=== PATIENT | female | born 1940 | race Caucasian/White ===

== ENCOUNTER → 2018-04-25 11:40 | Outpatient (CLI) | payer MEDICARE, OTHER, SELFPAY ==
--- NOTE | 2018-04-25 | DI.MG.S_ITS ---
BILATERAL DIGITAL SCREENING MAMMOGRAM 3D/2D WITH CAD: 04/25/2018 CLINICAL: Routine screening. Comparison is made to exams dated: 03/29/2017 mammogram, 09/16/2015 mammogram, and 07/24/2014 mammogram - [facility]. There are scattered fibroglandular elements in both breasts. Current study was also evaluated with a Computer Aided Detection (CAD) system. No significant masses, calcifications, or other findings are seen in either breast. There has been no significant interval change. IMPRESSION: NEGATIVE There is no mammographic evidence of malignancy. A 1 year screening mammogram is recommended. This exam was interpreted at Station ID: [id number]. NOTE: For mammograms, a report in lay terms will be sent to the patient. Approximately 15% of breast malignancies will not be visualized mammographically. In the management of a palpable breast mass, a negative mammogram must not discourage biopsy of a clinically suspicious lesion. Electronically Signed By: Julius Zazueta M.D. [facility]/[place]:04/25/2018 23:37:46 copy to: VALERIA ANTHONY letter sent: Normal Exam ACR BI-RADS Category 1: Negative 3341F
== END ==
PROVIDERS: Family Provider Family Medicine; PCP Family Medicine; Visit Provider Family Medicine
DX: Z12.31 Encounter for screening mammogram for malignant neoplasm of breast (principal)
CPT/HCPCS: 77063; 77067

== ENCOUNTER → 2020-03-13 13:01 | Outpatient (CLI) | payer MEDICARE, OTHER, SELFPAY ==
--- NOTE | 2020-03-13 | DI.MG.S_ITS ---
BILATERAL DIGITAL SCREENING MAMMOGRAM 3D/2D WITH CAD: 03/13/2020 CLINICAL: Routine screening. Comparison is made to exams dated: 04/25/2018 mammogram, 03/29/2017 mammogram, and 09/16/2015 mammogram - [facility]. There are scattered fibroglandular elements in both breasts. Current study was also evaluated with a Computer Aided Detection (CAD) system. No significant masses, calcifications, or other findings are seen in either breast. There has been no significant interval change. IMPRESSION: NEGATIVE There is no mammographic evidence of malignancy. A 1 year screening mammogram is recommended. This exam was interpreted at Station ID: [id number]. NOTE: For mammograms, a report in lay terms will be sent to the patient. Approximately 15% of breast malignancies will not be visualized mammographically. In the management of a palpable breast mass, a negative mammogram must not discourage biopsy of a clinically suspicious lesion. Electronically Signed By: Roney benson/tawny:03/13/2020 17:19:17 copy to: VALERIA ANTHONY letter sent: Normal Exam ACR BI-RADS Category 1: Negative 3341F
== END ==
PROVIDERS: Family Provider Family Medicine; PCP Family Medicine; Referring Provider Family Medicine; Visit Provider Family Medicine
DX: Z12.31 Encounter for screening mammogram for malignant neoplasm of breast (principal)
CPT/HCPCS: 77063; 77067

== ENCOUNTER → 2021-07-23 10:54 | Outpatient (CLI) | payer MEDICARE, OTHER, SELFPAY ==
--- NOTE | 2021-07-23 | DI.MG.S_ITS ---
BILATERAL DIGITAL SCREENING MAMMOGRAM 3D/2D WITH CAD: 07/23/2021 CLINICAL: Routine screening. Comparison is made to exams dated: 03/13/2020 mammogram, 04/25/2018 mammogram, and 03/29/2017 mammogram - [facility]. There are scattered fibroglandular elements in both breasts. Current study was also evaluated with a Computer Aided Detection (CAD) system. No significant masses, calcifications, or other findings are seen in either breast. There has been no significant interval change. IMPRESSION: NEGATIVE There is no mammographic evidence of malignancy. A 1 year screening mammogram is recommended. This exam was interpreted at Station ID: [id number]. NOTE: For mammograms, a report in lay terms will be sent to the patient. Approximately 15% of breast malignancies will not be visualized mammographically. In the management of a palpable breast mass, a negative mammogram must not discourage biopsy of a clinically suspicious lesion. Electronically Signed By: Edita balderas/tawny:07/23/2021 11:57:05 copy to: VALERIA ANTHONY letter sent: Normal Exam ACR BI-RADS Category 1: Negative 3341F
== END ==
PROVIDERS: Family Provider Family Medicine; PCP Family Medicine; Referring Provider Family Medicine; Visit Provider Family Medicine
DX: Z12.31 Encounter for screening mammogram for malignant neoplasm of breast (principal)
CPT/HCPCS: 77063; 77067

== ENCOUNTER → 2022-10-08 15:44 | Outpatient (CLI) | payer MEDICARE, OTHER, SELFPAY ==
--- NOTE | 2022-10-08 15:46 | DI.MG.S_ITS ---
BILATERAL DIGITAL SCREENING MAMMOGRAM 3D/2D WITH CAD: 10/08/2022 CLINICAL: Routine screening. Comparison is made to exams dated: 07/23/2021 mammogram, 03/13/2020 mammogram, and 04/25/2018 mammogram - [facility]. There are scattered areas of fibroglandular density in both breasts (category b / 25%-50% glandular tissue). Current study was also evaluated with a Computer Aided Detection (CAD) system. No significant masses, calcifications, or other findings are seen in either breast. There has been no significant interval change. IMPRESSION: NEGATIVE There is no mammographic evidence of malignancy. A 1 year screening mammogram is recommended. Based on the Tyrer Cuzick model (a risk assessment model) the patient's lifetime risk is 0.3% and her 10 year risk is 0.0%. According to the ACR, ACS, and NCCN guidelines, an annual breast MRI exam along with mammogram is recommended if the patient's lifetime risk is 20% or greater. This exam was interpreted at Station ID: [id number]. NOTE: For mammograms, a report in lay terms will be sent to the patient. Approximately 15% of breast malignancies will not be visualized mammographically. In the management of a palpable breast mass, a negative mammogram must not discourage biopsy of a clinically suspicious lesion. Electronically Signed By: Roney benson/tawny:10/08/2022 17:15:12 copy to: VALERIA ANTHONY letter sent: Normal Exam ACR BI-RADS Category 1: Negative 3341F
== END ==
PROVIDERS: Family Provider Family Medicine; PCP Family Medicine; Referring Provider Family Medicine; Visit Provider Family Medicine
DX: Z12.31 Encounter for screening mammogram for malignant neoplasm of breast (principal)
CPT/HCPCS: 77063; 77067

== ENCOUNTER → 2022-10-29 07:52 | Outpatient (CLI) | payer MEDICARE, OTHER, SELFPAY ==
--- NOTE | 2022-10-29 | DI.ECHO.S_ITS ---
[facility] +---------+ : : [address] [place] : : : : [id number] : : : : Phone: [phone]+ Echocardiogram Report + + :Name: IRASEMA NGUYỄN Study Date: 10/29/2022 Height: 62 in : :[facility] ReadingLocation: Weight: 160 lb : : Gender: Female BSA: 1.7 m2 : :: 1940 Age: 82 yrs BP: 150/89 mmHg: :Reason For Study: EDEMA/HYPERTENSION HR: 60 : :Ordering Physician: LALI CHARLES : :E Performed By: TREMAYNE POTTS : :Referring: LALI CHARLES E : + + Interpretation Summary The ejection fraction is estimated to be 55-60%. Diastolic parameters suggest probable elevated filling pressures. The right ventricle is normal in size and function. There is mild mitral regurgitation. There is mild tricuspid regurgitation. The right ventricular systolic pressure is estimated to be at least 26 mmHg based on an estimated right atrial pressure of 3 mm Hg. Procedure: A two-dimensional transthoracic echocardiogram with color flow and Doppler was performed. The study quality was technically adequate. There is no prior echocardiogram noted for this patient. The patient was in normal sinus rhythm during the exam. Left Ventricle: The left ventricle is normal in size and wall thickness. Left ventricular systolic function is normal. The ejection fraction is estimated to be 55-60%. Diastolic function could not be accurately assessed due to contradictory data. Diastolic parameters suggest probable elevated filling pressures. Right Ventricle: The right ventricle is normal in size and function. Atria: Both atria are normal in size. There is no Doppler evidence for an interatrial shunt. Mitral Valve: There is mild mitral annular calcification. The mitral valve is normal. There is mild mitral regurgitation. Aortic Valve: The aortic valve is trileaflet. The aortic valve opens well. There is no aortic valve stenosis. No aortic regurgitation is present. Tricuspid Valve: The tricuspid valve is normal in structure and function. There is mild tricuspid regurgitation. The right ventricular systolic pressure is estimated to be at least 26 mmHg based on an estimated right atrial pressure of 3 mm Hg. Pulmonic Valve: The pulmonic valve is normal in structure and function. There is no pulmonic valvular regurgitation. Great Vessels: The aortic root is normal size. The ascending aorta is normal in size. The IVC is of normal diameter and collapses greater than 50% with a sniff. This suggests a low right atrial pressure of 3 mm Hg. Pericardium/ Pleura There is no pericardial effusion. There is no pleural effusion. MMode/2D Measurements & Calculations LVIDd: 3.8 cm LVOT diam: 1.7 cm LVIDs: 2.4 cm Ao root diam: 2.9 cm FS: 36.8 % asc Aorta Diam: 3.0 cm IVSd: 0.60 cm LVPWd: 0.80 cm LV morgan. diameter/BSA (cm/m^2): 2.2 LV sys. diameter/BSA (cm/m^2): 1.4 LA A2 area: 13.4 cm2 RA long axis: 4.8 cm LA A4 area: 10.9 cm2 LA length (vol): 4.8 cm LA vol: 26.1 ml LA vol index: 15.0 ml/m2 LVLs ap4: 6.5 cm LVLd ap2: 6.2 cm LVLs ap2: 4.8 cm TAPSE_phl: 2.3 cm Doppler Measurements & Calculations Ao V2 max: 105.0 cm/sec LVOT Max Darian: 97.9 cm/sec Ao V2 mean: 78.6 cm/sec LV V1 max P.8 mmHg Ao max P.4 mmHg LV V1 VTI: 21.9 cm Ao mean P.0 mmHg ROGER(I,D): 1.9 cm2 Ao V2 VTI: 25.7 cm ROGER(V,D): 2.1 cm2 sev ratio: 0.85 ROGER indexed to BSA (cm^2/m^2): 1.1 MV E max darian: 118.7 cm/sec TR max darian: 240.0 cm/sec MV A max darian: 130.0 cm/sec TR max P.9 mmHg MV E/A: 0.91 PA V2 max: 69.8 cm/sec Med Peak E' Darian: 6.8 cm/sec PA V2 mean: 54.9 cm/sec E/E' med: 17.5 PA mean P.0 mmHg Lat Peak E' Darian: 5.9 cm/sec PA pr(Accel): 23.6 mmHg E/E' lat: 20.1 E/e' average: 18.8 MV dec time: 0.26 sec SV(LVOT): 49.7 ml AV VR_phl: 0.93 ROGER(VTI)/BSA_phl: 1.1 MV P1/2t-pr_phl: 76.0 msec Reading Physician:01:19 PM
== END ==
PROVIDERS: Family Provider Family Medicine; PCP Family Medicine; Referring Provider Family Medicine; Visit Provider Family Medicine
DX: R60.0 Localized edema (principal); I10 Essential (primary) hypertension; I08.1 Rheumatic disorders of both mitral and tricuspid valves
CPT/HCPCS: 93306

== ENCOUNTER → 2023-11-21 15:24 | Outpatient (CLI) | payer MEDICARE, SELFPAY ==
[2023-11-21 16:02] LABS: Add Manual Diff / Slide Review NO; Basophils Absolute Auto 0 /uL (0-100); Basophils Percent Auto 0.3 % (0-2); Eosinophils Absolute Auto 700 /uL (0-450); Lymphocytes Absolute Auto 1700 /uL (1100-4500); Lymphocytes Percent Auto 15.6 % (25-40); Mean Corpuscular HGB Conc 33.2 % (30-36); Mean Corpuscular Hemoglobin 30.4 PG (26-34); Mean Corpuscular Volume 91.7 fL (80-100); Monocytes Absolute Auto 1300 /uL (0-900); Monocytes Percent Auto 11.4 % (3-14); Neutrophils Absolute Auto 7300 /uL (1500-7000); Neutrophils Percent Auto 66.7 % (50-75); Platelet Count 299 X10^3/uL (150-400); Red Blood Cell Count 4.26 X10^6/uL (4.0-5.2); Red Cell Distribution Width 13.6 % (11.6-14.8)
[2023-11-21 16:19] LABS: HEMOLYSIS < 15 (0-50)
[2023-11-21 16:26] LABS: Alanine Aminotransferase 21 IU/L (<35); Albumin 3.9 g/dL (3.5-5.0); Albumin Globulin Ratio 1.1 (1.0-2.8); Alkaline Phosphatase 76 U/L (38-126); Aspartate Aminotransferase 32 IU/L (14-36); Bilirubin Total 0.6 mg/dL (0.2-1.3); Blood Urea Nitrogen 21 mg/dL (7-17); Calcium 9.5 mg/dL (8.4-10.2); Carbon Dioxide 27 mmol/L (22-32); Chloride 103 mmol/L (98-107); Estimated Glomerular Filt Rate > 60 mL/min (>60); Globulin 3.7 g/dL (1.7-4.1); Glucose 89 mg/dL (80-110); Potassium 3.8 mmol/L (3.4-5.1); Sodium 136 mmol/L (137-145); Total Protein 7.6 g/dL (6.3-8.2)
[2023-11-24 15:00] LABS: Vitamin B12 Reflex MMA if <400 776 pg/mL (239-931)
== END ==
PROVIDERS: Family Provider Family Medicine; PCP Family Medicine; Referring Provider Family Medicine; Visit Provider Family Medicine
DX: E78.2 Mixed hyperlipidemia (principal); G25.81 Restless legs syndrome; G62.9 Polyneuropathy, unspecified; I10 Essential (primary) hypertension; G25.0 Essential tremor
CPT/HCPCS: 36415; 80053; 82607; 85025

== ENCOUNTER 2023-12-28 12:09 | Emergency (ER) | payer MEDICARE, SELFPAY ==
[2023-12-28 12:13] VITALS: BP 140/76; PULSE 90; RESP 18; TEMP 36.5; O2SAT 95; BMI 28.3
[2023-12-28 12:21] VITALS: PULSE 85; O2SAT 94
[2023-12-28 12:30] VITALS: BP 117/63; PULSE 76; RESP 21; O2SAT 93
[2023-12-28 12:45] LABS: Add Manual Diff / Slide Review NO; Basophils Absolute Auto 100 /uL (0-100); Basophils Percent Auto 0.6 % (0-2); Eosinophils Absolute Auto 700 /uL (0-450); Eosinophils Percent Auto 7.5 % (2-4); Hematocrit 38.7 % (36-46); Hemoglobin 13.1 g/dL (12.0-16.0); Lymphocytes Absolute Auto 1700 /uL (1100-4500); Lymphocytes Percent Auto 18.7 % (25-40); Mean Corpuscular HGB Conc 33.9 % (30-36); Mean Corpuscular Hemoglobin 30.4 PG (26-34); Mean Corpuscular Volume 89.7 fL (80-100); Monocytes Absolute Auto 1000 /uL (0-900); Monocytes Percent Auto 10.8 % (3-14); Neutrophils Absolute Auto 5700 /uL (1500-7000); Neutrophils Percent Auto 62.4 % (50-75); Platelet Count 289 X10^3/uL (150-400); Red Blood Cell Count 4.31 X10^6/uL (4.0-5.2); Red Cell Distribution Width 13.4 % (11.6-14.8); White Blood Cell Count 9.1 X10^3/uL (4.5-11.0)
[2023-12-28 12:51] LABS: Alanine Aminotransferase 18 IU/L (<35); Albumin 4.4 g/dL (3.5-5.0); Albumin Globulin Ratio 1.3 (1.0-2.8); Alkaline Phosphatase 63 U/L (38-126); Aspartate Aminotransferase 37 IU/L (14-36); BUN Creatinine Ratio 21.7 (6-22); Blood Urea Nitrogen 18 mg/dL (7-17); Calcium 9.1 mg/dL (8.4-10.2); Carbon Dioxide 23 mmol/L (22-32); Chloride 108 mmol/L (98-107); Creatine Kinase 81 U/L (30-135); Estimated Glomerular Filt Rate > 60 mL/min (>60); Globulin 3.5 g/dL (1.7-4.1); Glucose 109 mg/dL (80-110); HEMOLYSIS 184 (0-50); Lipase 191 U/L (23-300); Sodium 137 mmol/L (137-145); Total Protein 7.9 g/dL (6.3-8.2)
[2023-12-28 12:52] LABS: Potassium 5.7 mmol/L (3.4-5.1)
[2023-12-28 13:00] VITALS: BP 104/57; PULSE 73; RESP 29; O2SAT 92
[2023-12-28 13:05] LABS: Troponin I 0.016 ng/mL (0.01-0.034)
--- NOTE | 2023-12-28 13:21 | ED_ITS ---
HPI - General Adult General Chief complaint: Hypertension Stated complaint: HBP, vision problem Time Seen by Provider: 12/28/23 12:22 Source: patient Mode of arrival: Ambulatory History of Present Illness HPI narrative: Patient is an 83-year-old female. Has a history of high blood pressure. Is on losartan. Has been taking all of her medications. She states that she has been having some pain in the back of her right neck for some time now. It does seem to come and go. She took some Tylenol prior to arrival into the time of my evaluation she states that her neck pain is much better. She was also had some transient vision symptoms. She states that for some time now she has had some problems reading street signs. Today she was going to her workout session at the living facility where she was staying and she states that the instructor was somewhat blurry. This made her somewhat concerned given the changes in her vision and also her neck pain. She went to the fire station and had her blood pressure check. States that the systolic blood pressure was in the 150s. She denies chest pain. Denies shortness of breath. Denies abdominal pain or nausea vomiting. No lower extremity swelling. She contacted her primary doctor's office who advised that she come to the emergency department for evaluation. Related Data Home Medications Medication Instructions Recorded Confirmed ASPIRIN (Aspirin EC) 81 mg PO Q DAY ##0 02/03/11 12/19/23 vitamin B complex (B 1 tab PO DAILY 01/17/18 12/19/23 Complex-Vitamin B12 tablet) omeprazole 20 mg capsule,delayed 20 mg PO DAILY 11/14/23 12/19/23 release Previous Rx's Medication Instructions Recorded pramipexole 0.25 mg tablet 0 PO QID #480 tabs 04/06/17 (Mirapex) losartan 25 mg tablet 25 mg PO DAILY #90 tabs 11/14/23 mupirocin 2 % topical ointment 1 applic topical BID #22 grams 12/19/23 topiramate 25 mg tablet 25 mg PO DAILY #30 tabs 12/19/23 Allergies Allergy/AdvReac Type Severity Reaction Status Date / Time No Known Drug Allergies Allergy Unverified 12/19/23 15:27 Review of Systems Review of Systems ROS Unobtainable: All systems reviewed & are unremarkable except as noted in HPI and below Patient History Medical History Graves' disease (10/27/15) Graves' disease (09/20/05) Eczema Hearing loss Cataracts, bilateral Mumps Measles Chickenpox Basal cell carcinoma of scalp Restless legs syndrome (10/27/15) Rosacea (10/27/15) Surgical History (Updated 12/08/23 @ 20:19 by Liliana Morales) Anesthesia Hx of tonsillectomy History of prolapse of bladder Family History (Updated 12/08/23 @ 20:20 by Liliana Morales) Father Cancer Mother Stroke Social History Smoking Status: Never smoker substance use type: does not use Smoking Status: Never smoker Substance Use Type: does not use Exam Initial Vital Signs Initial Vital Signs: Vital Signs Temperature 97.7 F 12/28/23 12:13 Pulse Rate 90 12/28/23 12:13 Respiratory Rate 18 12/28/23 12:13 Blood Pressure 140/76 12/28/23 12:13 Pulse Oximetry 95 12/28/23 12:13 Oxygen Delivery Method Room Air 12/28/23 12:13 Const General: cooperative, comfortable and No ill appearing HENKS Head: normal to inspection and normocephalic Face and sinus: normal facial exam Resp Effort & Inspection: normal respiratory effort Auscultation: clear to auscultation bilaterally Cardio Rate: regular rate Rhythm: regular rhythm GI Inspection: normal to inspection Back/Spine/Pelvis Other: No discomfort at the cervical paraspinal or midline however he was the right- sided occipital region where she reports having discomfort occasionally. Skin General: no rashes or lesions noted Neuro General: patient alert, patient awake, patient oriented x3 and moves all extremities Extrem General: No edema Course Orders Ordered: ED Orders 12/28/23 12:23 EKG-12 Lead Stat 12/28/23 12:29 Complete Blood Count AUTO DIFF Stat Comprehensive Metabolic Panel Stat Lipase Stat Troponin & CK Cardiac Panel Stat Vital Signs Vital signs: Vital Signs - 8 hr 12/28/23 12:13 12/28/23 12:21 12/28/23 12:30 Temperature 97.7 F Pulse Rate 90 85 76 Respiratory Rate 18 21 Blood Pressure 140/76 Pulse Oximetry 95 94 93 Oxygen Delivery Method Room Air 12/28/23 12:30 Temperature Pulse Rate Respiratory Rate Blood Pressure 117/63 Pulse Oximetry Oxygen Delivery Method Medical Decision Making Lab Data Lab results reviewed: Yes I reviewed the patient's lab results. 12/28/23 12:29 12/28/23 12:29 Labs: Lab Results 12/28/23 Range/Units 12:29 WBC 9.1 (4.5-11.0) X10^3/uL RBC 4.31 (4.0-5.2) X10^6/uL Hgb 13.1 (12.0-16.0) g/dL Hct 38.7 (36-46) % MCV 89.7 (80-100) fL MCH 30.4 (26-34) PG MCHC 33.9 (30-36) % RDW 13.4 (11.6-14.8) % Plt Count 289 (150-400) X10^3/uL Neut % (Auto) 62.4 (50-75) % Lymph % (Auto) 18.7 L (25-40) % Lawrence % (Auto) 10.8 (3-14) % Eos % (Auto) 7.5 H (2-4) % Baso % (Auto) 0.6 (0-2) % Neut # (Auto) 5700 (1437-5468) /uL Lymph # (Auto) 1700 (1462-1231) /uL Lawrence # (Auto) 1000 H (0-900) /uL Eos # (Auto) 700 H (0-450) /uL Baso # (Auto) 100 (0-100) /uL Sodium 137 (137-145) mmol/L Potassium 5.7 H (3.4-5.1) mmol/L Chloride 108 H (98-107) mmol/L Carbon Dioxide 23 (22-32) mmol/L BUN 18 H (7-17) mg/dL Creatinine 0.83 (0.52-1.04) mg/dL Estimated GFR > 60 (>60) mL/min BUN/Creatinine Ratio 21.7 (6-22) Glucose 109 (80-110) mg/dL Calcium 9.1 (8.4-10.2) mg/dL Total Bilirubin 1.0 (0.2-1.3) mg/dL AST 37 H (14-36) IU/L ALT 18 (<35) IU/L Alkaline Phosphatase 63 (38-126) U/L Total Creatine Kinase 81 (30-135) U/L Troponin I 0.016 (0.01-0.034) ng/mL Total Protein 7.9 (6.3-8.2) g/dL Albumin 4.4 (3.5-5.0) g/dL Globulin 3.5 (1.7-4.1) g/dL Albumin/Globulin Ratio 1.3 (1.0-2.8) Lipase 191 (23-300) U/L ECG Data Attestation: I personally reviewed and interpreted this ECG as follows: Interpretation: Sinus rhythm Ventricular rate 70 Normal axis Normal QRS Normal QTC No ST T wave changes MDM Narrative Medical decision making narrative: Patient's blood pressure is normal now with a systolic in the 100s. She has no neck pain. No chest pain. No shortness of breath. She reports that her vision changes have resolved. Low suspicion for ACS, CHF, PE, intracranial hemorrhage, CVA. I discussed all this with the patient. I discussed how she should be taking her blood pressure at home. Discussed how she should follow-up with her primary care doctor. Discussed return precautions. She expressed understanding and agreement. Discharge Plan Departure Patient Disposition: Home Clinical Impression: Changes in vision, Hypertension Instructions: DI for High Blood Pressure Activity Restrictions/Additional Instructions: Continue to take all of your medications as directed. Recommend that you contact your primary care doctor for follow-up. Take your blood pressure at home like we discussed. Return to the emergency department for new or worsening symptoms. Prescriptions: No Action ASPIRIN (Aspirin EC) 81 mg PO Q DAY Qty: 0 pramipexole [Mirapex] 0.25 MG tablet 0 PO QID Qty: 480 0RF vitamin B complex [B Complex-Vitamin B12] tablet 1 tab PO DAILY mupirocin 2 % ointment 1 applic topical BID Qty: 22 0RF topiramate 25 mg tablet 25 mg PO DAILY Qty: 30 0RF omeprazole 20 mg capsule,delayed release(DR/EC) 20 mg PO DAILY losartan 25 mg tablet 25 mg PO DAILY Qty: 90 3RF Referrals: Malena Rosas, [Primary Care Provider] - Stand Alone Forms: Patient Portal/API
[2023-12-28 13:29] VITALS: PULSE 74; RESP 25; O2SAT 94
[2023-12-28 13:33] VITALS: BP 116/56
== END 2023-12-28 13:31 | disposition home or self-care (01) ==
PROVIDERS: Emergency Provider Emergency Medicine; Family Provider Family Medicine; PCP Family Medicine
DX: H53.9 Unspecified visual disturbance (principal); I10 Essential (primary) hypertension; M54.2 Cervicalgia
CPT/HCPCS: 36415; 80053; 82550; 83690; 84484; 85025; 93005; 93010; 99283

== ENCOUNTER 2024-03-13 10:27 | Emergency (ER) | payer MEDICARE, SELFPAY ==
[2024-03-13 10:36] VITALS: BP 128/66; PULSE 75; RESP 18; TEMP 36.4; O2SAT 95; BMI 28.3
--- NOTE | 2024-03-13 10:43 | DI.RAD.S_ITS ---
PROCEDURE: XR CHEST 1V INDICATIONS: chest pain TECHNIQUE: One view of the chest was acquired. COMPARISON: None. FINDINGS: Surgical changes and devices: None. Lungs and pleura: Low lung volumes. Increased pulmonary markings. Peribronchial cuffing. Vascular crowding. Mediastinum: Mediastinal contours appear normal. Heart size is normal. Bones and chest wall: No suspicious bony lesions. Overlying soft tissues appear unremarkable. IMPRESSION: Suspected mild pulmonary edema, with peribronchial cuffing and interstitial markings. Dictated by: Jesús Patel M.D. on 03/13/2024 at 11:10 Approved by: Jesús Patel M.D. on 03/13/2024 at 11:11
--- NOTE | 2024-03-13 10:43 | DI.CT.S_ITS ---
PROCEDURE: CT CERVICAL SPINE WO CON INDICATIONS: fall hit headx2 today TECHNIQUE: Noncontrast 3 mm thick sections acquired from the skull base to the T4 level. Sagittal and coronal reformats were then constructed. For radiation dose reduction, the following was used: automated exposure control, adjustment of mA and/or kV according to patient size. COMPARISON: None. FINDINGS: Image quality: Excellent. Bones: No fractures or dislocations. Visualized superior ribs are intact. Soft tissues: Prevertebral soft tissues are normal in thickness. No paravertebral hematomas. No apical pneumothoraces. IMPRESSION: No displaced fracture or traumatic subluxation. Dictated by: Jesús Patel M.D. on 03/13/2024 at 11:31 Approved by: Jesús Patel M.D. on 03/13/2024 at 11:32
--- NOTE | 2024-03-13 10:43 | DI.CT.S_ITS ---
PROCEDURE: CT HEAD/BRAIN WO CON INDICATIONS: fall hit headx2 today TECHNIQUE: Noncontrast 4.5 mm thick angled axial sections acquired from the foramen magnum to the vertex, with coronal and sagittal reformats. For radiation dose reduction, the following was used: automated exposure control, adjustment of mA and/or kV according to patient size. COMPARISON: None. FINDINGS: Image quality: Diagnostic. CSF spaces: Basal cisterns are patent. No extra-axial fluid collections. The ventricles are symmetric in size and shape. Brain: No intracranial bleeds or masses. There is cerebral volume loss for age, with resultant ventricular and sulcal prominence. There are periventricular and deep white matter chronic small vessel ischemic changes. There is intracranial internal carotid artery atherosclerosis. Skull and face: Calvarium and visualized facial bones appear intact, without suspicious lesions. Frontal scalp contusion without underlying fracture. Sinuses: Visualized sinuses and mastoids are clear. IMPRESSION: No acute intracranial pathology. Frontal scalp contusion without underlying fracture. Dictated by: Jesús Patel M.D. on 03/13/2024 at 11:29 Approved by: Jesús Patel M.D. on 03/13/2024 at 11:31
--- NOTE | 2024-03-13 10:51 | EKG_ITS ---
[address] [address] Test Date: 2024-03-13 Pat Name: Dinora Austin Department: Room: Gender: Female Hog Tender: FLAVIO : 1940 Requested By: Order Number: [id number] Reading MD: Abram Verma Measurements Intervals [place] Rate: 64 P: 36 KS: 144 QRS: 1 QRSD: 72 T: 20 QT: 412 QTc: 425 Interpretive Statements Normal sinus rhythm Cannot rule out Anterior infarct , age undetermined Electronically Signed On 03-13-2024 12:37:06 PDT by Abram Verma
--- NOTE | 2024-03-13 11:14 | ED.FALL ---
HPI - Fall <Fab Stuart PA-C - Last Filed: 03/20/24 14:07> General Chief Complaint: Fall Stated Complaint: GLF, Head lac Time Seen by Provider: 03/13/24 11:08 Source: patient and EMS Mode of arrival: EMS History of Present Illness HPI Narrative: 83-year-old female with past medical history restless leg, hypertension, Graves disease, dyslipidemia presents to the ED status post 2 falls suffered this morning. Patient states that she is suffering from significant insomnia which is baseline for her. Patient states that she has not slept for the last 3 days, has sudden sleep attacks that caused her to fall. Patient states that the sleep attacks have been ongoing for the last 20 or so years. Patient states that she is on pramipexole for restless leg syndrome. However, patient states that she has never been hurt due to falls or sleepiness. This morning, patient states she had a sudden sleep attack which caused her to fall, however she did not sustain any injuries. She subsequently had a fall sometime later when she was standing up and trying some dishes at the sink and this time she saw that she was bleeding from a laceration to her brow. Patient denies fever, chills, chest pain, shortness of breath, nausea, vomiting. Related Data Home Medications Medication Instructions Recorded Confirmed ASPIRIN (Aspirin EC) 81 mg PO Q DAY ##0 02/03/11 03/19/24 vitamin B complex (B 1 tab PO DAILY 01/17/18 03/19/24 Complex-Vitamin B12 tablet) omeprazole 20 mg capsule,delayed 20 mg PO DAILY 11/14/23 03/19/24 release Previous Rx's Medication Instructions Recorded pramipexole 0.25 mg tablet 0 PO QID #480 tabs 04/06/17 (Mirapex) losartan 25 mg tablet 25 mg PO DAILY #90 tabs 11/14/23 mupirocin 2 % topical ointment 1 applic topical BID #22 grams 12/19/23 cefpodoxime 200 mg tablet 200 mg PO Q12H 10 days #20 tabs 03/13/24 Allergies Allergy/AdvReac Type Severity Reaction Status Date / Time No Known Drug Allergies Allergy Unverified 03/19/24 10:07 Review of Systems <Fab Stuart PA-C - Last Filed: 03/20/24 14:07> Constitutional Constitutional: Denies chills, Reports daytime sleepiness, Denies fatigue, Denies fever(s), Denies frequent falls, Denies lethargy and Denies weakness Comments: Sleep attacks Eyes Eyes: Denies change in vision, Denies eye discharge, Denies irritation and Denies loss of vision ENT Ears, Nose, Mouth, and Throat: Denies change in voice, Denies dizziness, Denies neck pain, Denies sore throat and Denies throat swelling Cardiovascular Cardiovascular: Denies chest pain, Denies irregular heart rhythm, Denies lightheadedness, Denies palpitations, Denies dyspnea, Denies dyspnea on exertion and Denies orthopnea Respiratory Respiratory: Denies cough, Denies dyspnea, Denies dyspnea on exertion and Denies wheezing Gastrointestinal Gastrointestinal: Denies abdominal pain, Denies change in bowel habits, Denies diarrhea, Denies nausea and Denies vomiting Musculoskeletal Musculoskeletal: Denies neck pain and Denies numbness Integumentary/Breasts Skin/Breast: Denies pruritus, Denies erythema, Denies rash and Denies wounds Comments: laceration to right brow Neurologic Neurologic: Denies behavioral changes, Denies confusion, Denies dizziness, Denies frequent falls, Denies loss of vision, Denies numbness and Denies weakness Psychiatric Psychiatric: Denies anxiety, Denies behavioral changes, Denies confusion, Denies depression, Denies homicidal ideation and Denies suicidal ideation Endocrine Endocrine: Denies fatigue, Denies flushing and Denies palpitations Hematologic/Lymphatic Hematologic/Lymphatic: Denies easy bruising Allergic/Immunologic Allergic/Immunologic: Denies urticaria, Denies throat swelling and Denies wheezing Patient History <Fab Stuart PA-C - Last Filed: 03/20/24 14:07> Medical History Graves' disease (10/27/15) Graves' disease (09/20/05) Eczema Hearing loss Cataracts, bilateral Mumps Measles Chickenpox Basal cell carcinoma of scalp Restless legs syndrome (10/27/15) Rosacea (10/27/15) Surgical History Anesthesia Hx of tonsillectomy History of prolapse of bladder Family History Father Cancer Mother Stroke Social History Smoking Status: Never smoker substance use type: does not use Smoking Status: Never smoker Substance Use Type: does not use Exam <PRIYA Pitts Last Filed: 03/20/24 14:07> Narrative Exam Narrative: Const General:?cooperative, healthy appearing and comfortable HENNE Head:? 2 cm linear laceration to right brow. Bleeding controlled with pressure; no hematoma; no scalp depressions Ears:?hearing grossly normal bilaterally Nose:?external nose normal Face and sinus:?normal facial exam and sinuses nontender; no raccoon sign; no tabares sign Mouth:?oral mucosae normal Throat:?posterior oropharynx normal Eyes General:?appearance normal, both eyes and all related structures Neck Neck:?normal visual inspection and no lymphadenopathy noted Resp Effort & Inspection:?normal respiratory effort Auscultation:?clear to auscultation bilaterally Cardio Rate:?regular rate Rhythm:?regular rhythm Neuro General:?patient alert, patient awake and patient oriented x3 Initial Vital Signs Initial Vital Signs: Vital Signs Temperature 97.5 F L 03/13/24 10:36 Pulse Rate 75 03/13/24 10:36 Respiratory Rate 18 03/13/24 10:36 Blood Pressure 128/66 03/13/24 10:36 Pulse Oximetry 95 03/13/24 10:36 Oxygen Delivery Method Room Air 03/13/24 10:36 <Shyla Perez DO - Last Filed: 03/21/24 07:50> Initial Vital Signs Initial Vital Signs: Vital Signs Temperature 97.5 F L 03/13/24 10:36 Pulse Rate 75 03/13/24 10:36 Respiratory Rate 18 03/13/24 10:36 Blood Pressure 128/66 03/13/24 10:36 Pulse Oximetry 95 03/13/24 10:36 Oxygen Delivery Method Room Air 03/13/24 10:36 Procedures <PRIYA Pitts Last Filed: 03/20/24 14:07> Laceration Repair Laceration 1: Site: face Side (If applicable): right Size (cm): 2 Description: linear Depth: simple, single layer Local Anesthetic: lidocaine 1% Amount of anesthesia used (mL): 2 Pre-repair: wound explored, irrigated extensively and deep structures intact Skin layer closed with: nylon Skin layer suture size: 5-0 Number of sutures: 3 Course <Fab Stuart PA-C - Last Filed: 03/20/24 14:07> Orders Ordered: ED Orders 03/13/24 10:43 CT cervical spine wo con Stat CT head/brain wo con Stat XR chest 1V Stat Complete Blood Count AUTO DIFF Stat Comprehensive Metabolic Panel Stat Lipase Stat Magnesium Stat NT-proBNP (BNP-Adult 18+) Stat PTT Partial Thromboplastin Baldev Stat Prothrombin Time INR Stat Troponin & CK Cardiac Panel Stat EKG-12 Lead Stat Vital Signs Vital signs: Vital Signs - 8 hr 03/13/24 10:36 Temperature 97.5 F L Pulse Rate 75 Respiratory Rate 18 Blood Pressure 128/66 Pulse Oximetry 95 Oxygen Delivery Method Room Air <Shyla Perez DO - Last Filed: 03/21/24 07:50> Orders Ordered: ED Orders 03/13/24 10:43 CT cervical spine wo con Stat CT head/brain wo con Stat XR chest 1V Stat Complete Blood Count AUTO DIFF Stat Comprehensive Metabolic Panel Stat Lipase Stat Magnesium Stat NT-proBNP (BNP-Adult 18+) Stat PTT Partial Thromboplastin Baldev Stat Prothrombin Time INR Stat Troponin & CK Cardiac Panel Stat EKG-12 Lead Stat Vital Signs Vital signs: Vital Signs - 8 hr 03/13/24 10:36 Temperature 97.5 F L Pulse Rate 75 Respiratory Rate 18 Blood Pressure 128/66 Pulse Oximetry 95 Oxygen Delivery Method Room Air MDM - Fall <PRIYA Pitts Last Filed: 03/20/24 14:07> Lab Data 03/13/24 11:40 03/13/24 11:40 Labs: Lab Results 03/13/24 03/13/24 03/13/24 Range/Units 11:40 12:00 15:00 WBC 9.7 (4.5-11.0) X10^3/uL RBC 4.16 (4.0-5.2) X10^6/uL Hgb 12.7 (12.0-16.0) g/dL Hct 37.7 (36-46) % MCV 90.6 (80-100) fL MCH 30.5 (26-34) PG MCHC 33.7 (30-36) % RDW 13.5 (11.6-14.8) % Plt Count 296 (150-400) X10^3/uL Neut % (Auto) 68.4 (50-75) % Lymph % (Auto) 16.1 L (25-40) % [place] % (Auto) 10.4 (3-14) % Eos % (Auto) 4.6 H (2-4) % Baso % (Auto) 0.5 (0-2) % Neut # (Auto) 6600 (8227-8164) /uL Lymph # (Auto) 1600 (8665-6471) /uL [place] # (Auto) 1000 H (0-900) /uL Eos # (Auto) 400 (0-450) /uL Baso # (Auto) 0 (0-100) /uL PT 10.7 (9.4-12.5) SECONDS INR 0.9 (0.9-1.3) APTT 35 (25.1-36.5) SECONDS Sodium 138 (137-145) mmol/L Potassium 4.2 (3.4-5.1) mmol/L Chloride 105 (98-107) mmol/L Carbon Dioxide 24 (22-32) mmol/L BUN 20 H (7-17) mg/dL Creatinine 0.85 (0.52-1.04) mg/dL Estimated GFR > 60 (>60) mL/min BUN/Creatinine Ratio 23.5 H (6-22) Glucose 106 (80-110) mg/dL Calcium 9.1 (8.4-10.2) mg/dL Magnesium 2.3 (1.6-2.3) mg/dL Total Bilirubin 0.6 (0.2-1.3) mg/dL AST 35 (14-36) IU/L ALT 22 (<35) IU/L Alkaline Phosphatase 81 (38-126) U/L Total Creatine Kinase 213 H (30-135) U/L Troponin I < 0.012 < 0.012 (0.01-0.034) ng/mL NT-Pro-B Natriuret Pep 393 (<450) pg/mL Total Protein 7.3 (6.3-8.2) g/dL Albumin 4.2 (3.5-5.0) g/dL Globulin 3.1 (1.7-4.1) g/dL Albumin/Globulin Ratio 1.4 (1.0-2.8) Lipase 169 (23-300) U/L Urine Color Yellow Urine Appearance Clear Urine pH 6.0 (4.5-8.0) Ur Specific [place] <=1.005 (1.000-1.035) Urine Protein Negative (Negative) Urine Glucose (UA) Negative (Negative) g/dL Urine Ketones Negative (NEGATIVE) Urine Occult Blood Negative (Negative) Urine Nitrate Negative (Negative) Urine Bilirubin Negative (NEGATIVE) Urine Urobilinogen 0.2 (0.2) E.U./dL Ur Leukocyte Esterase 2+ H (NEGATIVE) Urine RBC None seen (0-5/HPF) Urine WBC 5-10/hpf H (0-5/HPF) Ur Squamous Epith Cells 1-5 /hpf (0-5/HPF) Urine Bacteria None seen (None) Ur Culture Indicated? Specimen cultured Vol Urine Centrifuged 10ml (spun) Urine Dip Bedside Urine Glucose Negative Bedside Urine Bilirubin - Negative Bedside Urine Ketone - Negative Urine Specific [place] 1.010 Bedside Urine Occult Blood - Negative Bedside Urine pH 6.0 Bedside Urine Protein - Negative Bedside Urine Urobilinogen - Negative Bedside Urine Nitrite - Negative Bedside Urine Leukocytes ++ 125 Esterase MDM Narrative Medical decision making narrative: 83-year-old female with past medical history restless leg, hypertension, Graves disease, dyslipidemia presents to the ED status post 2 falls suffered this morning. Concern for ACS versus sleep attacks from pramipexole versus UTI versus electrolyte derangements versus intracranial hemorrhage versus fracture versus other. Will obtain EKG, chest x-ray, labs, CT head, CT C-spine, labs, UA. UA positive for UTI. Workup otherwise largely unremarkable. Labs within normal limits. CT head and C-spine without acute findings. Laceration repaired with 3 sutures. Tdap is up-to-date. Antibiotics prescribed for the UTI. Suture removal, wound care, signs of infection discussed with patient. While patient's symptoms could be related to the UTI, it is more likely that pramipexole is causing sleep attacks in the patient. Recommend follow-up with PCP and neurologist to re-evaluate pramipexole. ED return precautions discussed with patient. Patient verbalized understanding. Medical records reviewed: Yes <Shyla Perez DO - Last Filed: 03/21/24 07:50> Lab Data Labs: Lab Results 0703/13/24 03/13/24 Range/Units 11:40 12:00 15:00 WBC 9.7 (4.5-11.0) X10^3/uL RBC 4.16 (4.0-5.2) X10^6/uL Hgb 12.7 (12.0-16.0) g/dL Hct 37.7 (36-46) % MCV 90.6 (80-100) fL MCH 30.5 (26-34) PG MCHC 33.7 (30-36) % RDW 13.5 (11.6-14.8) % Plt Count 296 (150-400) X10^3/uL Neut % (Auto) 68.4 (50-75) % Lymph % (Auto) 16.1 L (25-40) % [place] % (Auto) 10.4 (3-14) % Eos % (Auto) 4.6 H (2-4) % Baso % (Auto) 0.5 (0-2) % Neut # (Auto) 6600 (9452-5276) /uL Lymph # (Auto) 1600 (4070-8152) /uL [place] # (Auto) 1000 H (0-900) /uL Eos # (Auto) 400 (0-450) /uL Baso # (Auto) 0 (0-100) /uL PT 10.7 (9.4-12.5) SECONDS INR 0.9 (0.9-1.3) APTT 35 (25.1-36.5) SECONDS Sodium 138 (137-145) mmol/L Potassium 4.2 (3.4-5.1) mmol/L Chloride 105 (98-107) mmol/L Carbon Dioxide 24 (22-32) mmol/L BUN 20 H (7-17) mg/dL Creatinine 0.85 (0.52-1.04) mg/dL Estimated GFR > 60 (>60) mL/min BUN/Creatinine Ratio 23.5 H (6-22) Glucose 106 (80-110) mg/dL Calcium 9.1 (8.4-10.2) mg/dL Magnesium 2.3 (1.6-2.3) mg/dL Total Bilirubin 0.6 (0.2-1.3) mg/dL AST 35 (14-36) IU/L ALT 22 (<35) IU/L Alkaline Phosphatase 81 (38-126) U/L Total Creatine Kinase 213 H (30-135) U/L Troponin I < 0.012 < 0.012 (0.01-0.034) ng/mL NT-Pro-B Natriuret Pep 393 (<450) pg/mL Total Protein 7.3 (6.3-8.2) g/dL Albumin 4.2 (3.5-5.0) g/dL Globulin 3.1 (1.7-4.1) g/dL Albumin/Globulin Ratio 1.4 (1.0-2.8) Lipase 169 (23-300) U/L Urine Color Yellow Urine Appearance Clear Urine pH 6.0 (4.5-8.0) Ur Specific [place] <=1.005 (1.000-1.035) Urine Protein Negative (Negative) Urine Glucose (UA) Negative (Negative) g/dL Urine Ketones Negative (NEGATIVE) Urine Occult Blood Negative (Negative) Urine Nitrate Negative (Negative) Urine Bilirubin Negative (NEGATIVE) Urine Urobilinogen 0.2 (0.2) E.U./dL Ur Leukocyte Esterase 2+ H (NEGATIVE) Urine RBC None seen (0-5/HPF) Urine WBC 5-10/hpf H (0-5/HPF) Ur Squamous Epith Cells 1-5 /hpf (0-5/HPF) Urine Bacteria None seen (None) Ur Culture Indicated? Specimen cultured Vol Urine Centrifuged 10ml (spun) Urine Dip Bedside Urine Glucose Negative Bedside Urine Bilirubin - Negative Bedside Urine Ketone - Negative Urine Specific [place] 1.010 Bedside Urine Occult Blood - Negative Bedside Urine pH 6.0 Bedside Urine Protein - Negative Bedside Urine Urobilinogen - Negative Bedside Urine Nitrite - Negative Bedside Urine Leukocytes ++ 125 Esterase Discharge Plan Departure Patient Disposition: Home Clinical Impression: UTI (urinary tract infection) Qualifiers: Urinary tract infection type: acute cystitis Hematuria presence: without hematuria Qualified Code(s): N30.00 - Acute cystitis without hematuria Instructions: DI for Urinary Tract Infection (UTI), How to Prevent Falls Activity Restrictions/Additional Instructions: You were evaluated in the ED today for extreme sleepiness and to falls. Your urine does show a urinary tract infection which could likely contribute to your symptoms. All your other tests were normal. You are being prescribed antibiotics for the next 10 days. Please take those as prescribed. Please also talk to your primary care doctor or neurologist regarding the medication pramipexole since that could be contributing to your sleep attacks as well. The laceration on your forehead was repaired with 3 sutures which will need to be removed in 5-7 days. You may go to a walk-in clinic, your PCP or return to the ED for suture removal. Please watch for signs of infection including worsening redness, warmth, discharge, swelling, pain. Return to the ED if you note any signs of infection. Return to the ED if you have worsening symptoms, fever, chills, persistent vomiting. Prescriptions: New cefpodoxime 200 mg tablet 200 mg PO Q12H 10 Days Qty: 20 0RF Rx Instructions: must administer with a meal/food No Action ASPIRIN (Aspirin EC) 81 mg PO Q DAY Qty: 0 pramipexole [Mirapex] 0.25 MG tablet 0 PO QID Qty: 480 0RF vitamin B complex [B Complex-Vitamin B12] tablet 1 tab PO DAILY mupirocin 2 % ointment 1 applic topical BID Qty: 22 0RF omeprazole 20 mg capsule,delayed release(DR/EC) 20 mg PO DAILY losartan 25 mg tablet 25 mg PO DAILY Qty: 90 3RF Referrals: Malena Rosas DO [Primary Care Provider] - Stand Alone Forms: Patient Portal/API ED Sign-out <Shyla Perez DO - Last Filed: 03/21/24 07:50> Cosign ED Attending Dharmeshature Attestation: I was immediately available in the department for consultation.
[2024-03-13 11:47] LABS: Add Manual Diff / Slide Review NO; Basophils Absolute Auto 0 /uL (0-100); Basophils Percent Auto 0.5 % (0-2); Eosinophils Absolute Auto 400 /uL (0-450); Eosinophils Percent Auto 4.6 % (2-4); Hematocrit 37.7 % (36-46); Hemoglobin 12.7 g/dL (12.0-16.0); Lymphocytes Absolute Auto 1600 /uL (1100-4500); Lymphocytes Percent Auto 16.1 % (25-40); Mean Corpuscular HGB Conc 33.7 % (30-36); Mean Corpuscular Hemoglobin 30.5 PG (26-34); Mean Corpuscular Volume 90.6 fL (80-100); Monocytes Absolute Auto 1000 /uL (0-900); Monocytes Percent Auto 10.4 % (3-14); Neutrophils Absolute Auto 6600 /uL (1500-7000); Neutrophils Percent Auto 68.4 % (50-75); Platelet Count 296 X10^3/uL (150-400); Red Blood Cell Count 4.16 X10^6/uL (4.0-5.2); Red Cell Distribution Width 13.5 % (11.6-14.8); White Blood Cell Count 9.7 X10^3/uL (4.5-11.0)
[2024-03-13 11:54] LABS: INR 0.9 (0.9-1.3); Prothrombin Time 10.7 SECONDS (9.4-12.5)
[2024-03-13 11:57] LABS: PTT Partial Thromboplastin Tim 35 SECONDS (25.1-36.5)
[2024-03-13 12:01] LABS: Alanine Aminotransferase 22 IU/L (<35); Albumin 4.2 g/dL (3.5-5.0); Albumin Globulin Ratio 1.4 (1.0-2.8); Alkaline Phosphatase 81 U/L (38-126); Aspartate Aminotransferase 35 IU/L (14-36); BUN Creatinine Ratio 23.5 (6-22); Bilirubin Total 0.6 mg/dL (0.2-1.3); Blood Urea Nitrogen 20 mg/dL (7-17); Calcium 9.1 mg/dL (8.4-10.2); Carbon Dioxide 24 mmol/L (22-32); Chloride 105 mmol/L (98-107); Creatine Kinase 213 U/L (30-135); Estimated Glomerular Filt Rate > 60 mL/min (>60); Globulin 3.1 g/dL (1.7-4.1); Glucose 106 mg/dL (80-110); HEMOLYSIS < 15 (0-50); Lipase 169 U/L (23-300); Magnesium 2.3 mg/dL (1.6-2.3); Potassium 4.2 mmol/L (3.4-5.1); Sodium 138 mmol/L (137-145); Total Protein 7.3 g/dL (6.3-8.2)
[2024-03-13 12:11] LABS: NT-proBNP (BNP-Adult 18+) 393 pg/mL (<450); Troponin I < 0.012 ng/mL (0.01-0.034)
[2024-03-13 12:29] VITALS: BP 139/65; PULSE 65; RESP 18; O2SAT 93
[2024-03-13 12:30] LABS: Appearance Urine UA CLEAR; Bilirubin Urine UA NEGATIVE (NEGATIVE); Color Urine UA YELLOW; Glucose Urine UA NEGATIVE (Negative); Ketones Urine UA NEGATIVE (NEGATIVE); Leukocyte Esterase Urine UA 2+ (NEGATIVE); Nitrite Urine UA NEGATIVE (Negative); Occult Blood Urine UA NEGATIVE (Negative); Protein Urine UA NEGATIVE (Negative); Specific Gravity Urine UA <=1.005 (1.000-1.035); Urobilinogen Urine UA 0.2 E.U./dL (0.2)
[2024-03-13 13:07] VITALS: BP 141/97; PULSE 72; RESP 16; O2SAT 97
[2024-03-13 13:09] LABS: Bacteria Urine None Seen; Culture Indicated Urine Specimen Cultured; RBC Urine None Seen (0-5/HPF); Squamous Epithelial Cell Urine 1-5 /HPF (0-5/HPF); Urine Volume 10mL (spun); WBC Urine 5-10/HPF (0-5/HPF)
[2024-03-13 14:46] VITALS: BP 146/85; PULSE 79; RESP 18; O2SAT 96
--- NOTE | 2024-03-13 15:13 | EKG_ITS ---
[address] [address] Test Date: 2024-03-13 Pat Name: Dinora Austin Department: [facility] Room: Gender: Female Guide Escort: MCKAY : 1940 Requested By: Order Number: [id number] Reading MD: Abram Verma Measurements Intervals [place] Rate: 74 P: 35 MI: 154 QRS: 6 QRSD: 68 T: 8 QT: 388 QTc: 430 Interpretive Statements Normal sinus rhythm Low voltage QRS Cannot rule out Anterior infarct , age undetermined Electronically Signed On 03-14-2024 8:50:48 PDT by Abram Verma
[2024-03-13 15:51] LABS: Troponin I < 0.012 ng/mL (0.01-0.034)
[2024-03-13 16:11] VITALS: BP 171/91; PULSE 93; O2SAT 94
== END 2024-03-13 16:12 | disposition home or self-care (01) ==
PROVIDERS: Emergency Medicine; Emergency Provider Student in an Organized Health Care Education/Training Program; Family Provider Family Medicine; PCP Family Medicine
DX: S01.111A Laceration without foreign body of right eyelid and periocular area, initial encounter (principal); N30.00 Acute cystitis without hematuria; W19.XXXA Unspecified fall, initial encounter; G47.00 Insomnia, unspecified
CPT/HCPCS: 12011; 36415; 70450; 71045; 72125; 80053; 81001; 81003; 82550; 83690; 83735; 83880; 84484; 85025; 85610; 85730; 87086; 87147; 93005; 99283; 99284

== ENCOUNTER 2024-03-14 23:33 | Emergency (ER) | payer MEDICARE, SELFPAY ==
[2024-03-14 23:40] VITALS: BP 107/76; PULSE 98; RESP 18; TEMP 36.1; O2SAT 96; BMI 28.3
== END 2024-03-15 00:42 | disposition left against medical advice (07) ==
PROVIDERS: Emergency Provider Emergency Medicine; Family Provider Family Medicine; PCP Family Medicine
CPT/HCPCS: 99281

== ENCOUNTER 2024-03-15 07:41 | Emergency (ER) | payer MEDICARE, SELFPAY ==
--- NOTE | 2024-03-15 07:51 | ED.GENADULT ---
HPI - General Adult General Chief complaint: Fall Stated complaint: fall, head injury/laceration on head Time Seen by Provider: 03/15/24 07:47 Source: patient, RN notes reviewed and old records reviewed Limitations: no limitations History of Present Illness HPI narrative: 83-year-old female with history of hypertension, dyslipidemia, restless leg, Graves disease 3 daily who presents with complaint of fall. Patient was seen here on 03/13/2024 for similar reason had suture repair, head CT and workup. Patient is on pramipexole and states that she has episodes where she sort of falls asleep suddenly or drops spells secondary to this medication that was the cause of her fall on the . She states it happened again yesterday. She states she has been off her medication for at least a day maybe 2 she has not sure. She did come last night but left without being seen and return this morning for eval. Patient states she did not have any symptoms that she was going to fall or pass out. States she did hit her head has a laceration on her posterior scalp. Bruising underneath her eye she states it is from the 1st fall. She denies headache, denies neck pain, denies chest pain or shortness of breath, denies any back pain. Denies any vision changes. No nausea or vomiting. Denies any dysuria urgency or frequency. No incontinence. Denies any numbness tingling or weakness or difficulty with ambulation. She states it has been going on for 2 or 3 years is typically several months apart with episodes. She states no other new medication changes. She is accompanied by a friend. She lives independently at [facility]. Her primary care is Dr. Rosas Related Data Home Medications Medication Instructions Recorded Confirmed ASPIRIN (Aspirin EC) 81 mg PO Q DAY ##0 02/03/11 12/19/23 vitamin B complex (B 1 tab PO DAILY 01/17/18 12/19/23 Complex-Vitamin B12 tablet) omeprazole 20 mg capsule,delayed 20 mg PO DAILY 11/14/23 12/19/23 release Previous Rx's Medication Instructions Recorded pramipexole 0.25 mg tablet 0 PO QID #480 tabs 04/06/17 (Mirapex) losartan 25 mg tablet 25 mg PO DAILY #90 tabs 11/14/23 mupirocin 2 % topical ointment 1 applic topical BID #22 grams 05/06/24 cefpodoxime 200 mg tablet 200 mg PO Q12H 10 days #20 tabs 03/13/24 Allergies Allergy/AdvReac Type Severity Reaction Status Date / Time No Known Drug Allergies Allergy Unverified 01/02/24 15:16 Review of Systems Review of Systems ROS Unobtainable: All systems reviewed & are unremarkable except as noted in HPI and below Patient History Medical History Graves' disease (10/27/15) Graves' disease (09/20/05) Eczema Hearing loss Cataracts, bilateral Mumps Measles Chickenpox Basal cell carcinoma of scalp Restless legs syndrome (10/27/15) Rosacea (10/27/15) Surgical History Anesthesia Hx of tonsillectomy History of prolapse of bladder Family History Father Cancer Mother Stroke Social History Smoking Status: Never smoker substance use type: does not use Smoking Status: Never smoker Substance Use Type: does not use Exam Narrative Exam Narrative: GEN: Patient appears in mild distress. HEAD: Patient laceration on posterior upper scalp proximally 2-1/2 cm, patient does have raccoon sign, no tabares sign, she also has suture repair on her right forehead that is clean dry and intact without any erythema warmth or swelling. NECK: Nontender, painless range of motion, trachea midline Negative Nexus criteria, there is no line tenderness, distracting injury, altered mental status, neuro deficit, recent EtOH. EYES: PERRLA, EOMI ENT: External inspection normal, trachea is midline, TM's are normal no hemotypanum, Nares are clear, no septal hematoma, no dental or oral injury, airway is normal and with normal occlusion, No bony tenderness RESP: Chest is nontender and has symmetric movement, no ecchymosis, breath sounds are normal no crackles, wheezes or rales CVS: Heart sounds are normal, no murmur noted, No JVD. ABG/GI: Nontender, soft, normal bowel sounds, no distention, no organomegaly, pelvic rock is negative NEURO: Oriented AOx3, neuro is grossly intact, sensation and motor is normal all 4 extremities moving, cranial nerves II through XII are intact, GCS is 15 PSYCH: Normal mood and affect SKIN: Intact, warm and dry, no crepitus and without decubitus BACK: No CVA tenderness, no vertebral tenderness, no step-off's, no crepitus EXT: Atraumatic, hips are nontender, no pedal edema, normal color and temperature, normal range of motion of extremities with normal tendon exam, 2+ pulses in all four extremities Initial Vital Signs Initial Vital Signs: Vital Signs Temperature 98.4 F 03/15/24 07:53 Pulse Rate 73 03/15/24 07:53 Respiratory Rate 16 03/15/24 07:53 Blood Pressure 140/87 03/15/24 07:53 Pulse Oximetry 96 03/15/24 07:53 Oxygen Delivery Method Room Air 03/15/24 07:53 Procedures Laceration Repair Laceration 1: Site: scalp Side (If applicable): left Size (cm): 2.8 Description: linear Depth: simple, single layer Local Anesthetic: other anesthetic (prilocaine) Amount of anesthesia used (mL): 5 Pre-repair: wound explored, irrigated extensively and deep structures intact Skin layer closed with: keila (#4) Course Orders Ordered: ED Orders 03/15/24 07:59 CT cervical spine wo con Stat CT head/brain wo con Stat 03/15/24 08:00 XR chest 1V Stat EKG-12 Lead Stat 03/15/24 08:09 Complete Blood Count AUTO DIFF Stat Comprehensive Metabolic Panel Stat Lipase Stat Troponin & CK Cardiac Panel Stat Discontinued Medications Lidocaine/Prilocaine (Lidocaine/Prilocaine 5 Gm) 5 gm TOP NOW ONE Stop: 03/15/24 08:02 Last Admin: 03/15/24 08:07 Dose: 5 gm Documented By: CTS Vital Signs Vital signs: Vital Signs - 8 hr 03/15/24 07:53 03/15/24 08:26 03/15/24 08:30 Temperature 98.4 F Pulse Rate 73 62 61 Respiratory Rate 16 Blood Pressure 140/87 Pulse Oximetry 96 96 92 Oxygen Delivery Method Room Air 03/15/24 08:31 03/15/24 08:31 03/15/24 08:55 Temperature Pulse Rate Respiratory Rate Blood Pressure 125/59 L 117/65 Pulse Oximetry 92 Oxygen Delivery Method 03/15/24 08:55 Temperature Pulse Rate 67 Respiratory Rate Blood Pressure Pulse Oximetry 96 Oxygen Delivery Method Medical Decision Making Lab Data 03/15/24 08:09 03/15/24 08:09 Labs: Lab Results 03/15/24 Range/Units 08:09 WBC 8.3 (4.5-11.0) X10^3/uL RBC 4.02 (4.0-5.2) X10^6/uL Hgb 12.1 (12.0-16.0) g/dL Hct 36.3 (36-46) % MCV 90.3 (80-100) fL MCH 30.1 (26-34) PG MCHC 33.3 (30-36) % RDW 13.5 (11.6-14.8) % Plt Count 264 (150-400) X10^3/uL Neut % (Auto) 65.2 (50-75) % Lymph % (Auto) 16.8 L (25-40) % [place] % (Auto) 12.7 (3-14) % Eos % (Auto) 4.8 H (2-4) % Baso % (Auto) 0.5 (0-2) % Neut # (Auto) 5400 (6892-4382) /uL Lymph # (Auto) 1400 (0450-4423) /uL [place] # (Auto) 1100 H (0-900) /uL Eos # (Auto) 400 (0-450) /uL Baso # (Auto) 0 (0-100) /uL Sodium 137 (137-145) mmol/L Potassium 4.4 (3.4-5.1) mmol/L Chloride 108 H (98-107) mmol/L Carbon Dioxide 22 (22-32) mmol/L BUN 27 H (7-17) mg/dL Creatinine 0.74 (0.52-1.04) mg/dL Estimated GFR > 60 (>60) mL/min BUN/Creatinine Ratio 36.5 H (6-22) Glucose 109 (80-110) mg/dL Calcium 8.7 (8.4-10.2) mg/dL Total Bilirubin 0.8 (0.2-1.3) mg/dL AST 40 H (14-36) IU/L ALT 22 (<35) IU/L Alkaline Phosphatase 62 (38-126) U/L Total Creatine Kinase 291 H (30-135) U/L Troponin I < 0.012 (0.01-0.034) ng/mL Total Protein 7.1 (6.3-8.2) g/dL Albumin 3.9 (3.5-5.0) g/dL Globulin 3.2 (1.7-4.1) g/dL Albumin/Globulin Ratio 1.2 (1.0-2.8) Lipase 147 (23-300) U/L ECG Data Attestation: I personally reviewed and interpreted this ECG as follows: Prior ECG tracings: available for review Interpretation: Sinus rhythm rate of 66 AR 148 QRS is 64 QTC [address] changes patient has prior from 03/13/2024 which appears similar. MDM Narrative Medical decision making narrative: 83-year-old female with 2 falls versus syncopal episodes versus other. Patient is on pramipexole and states that she has spells that cause her to suddenly fall asleep, sleep attacks and orthostatic hypotension. She did stop her medication in the last 24-48 hours she has not sure exactly when after her most recent episode on the when she was seen here. Patient had negative head CT at that time she did have labs and EKG as well, there is a urine culture that shows group B strep 30,000-40,000 CFU. Patient had prilocaine placed and laceration was repaired with keila. Patient had head CT no CT of acute intracranial change small right frontal scalp hematoma not significantly changed from previous study. CT C-spine no displaced fracture or traumatic subluxation, degenerative disc disease throughout cervical spine. No acute changes from prior study. Chest x-ray shows no acute change EKG no acute change Labs white count 8.3 hemoglobin of 12 platelets of 264, INR is 0.9 sodium is 137 potassium 4.4 chloride 108 CO2 is 22 with a BUN 27 creatinine 0.74 glucose of 109 AST is 40, total CK is 291 with a negative troponin. Reviewed findings with patient and friend at bedside. This is a known side effect her medication she has stopped in the last 24 hours encouraged her to continue to be off of it but follow-up for discussion about Holter monitor or ZIO patch and further workup needed. She had a urine that grew group B strep that is only 30-23900 CFU but did have prescription sent encouraged patient to pick this up and started as she has not done that yet. Patient did ambulate in the department, she has a walker at home but only uses occassionally and encouraged to use regularly. Discharge Plan Departure Patient Disposition: Home Clinical Impression: Laceration of scalp Activity Restrictions/Additional Instructions: Please follow-up for recheck with your physician for staple removal in 7-10 days. Call to set up an appointment. I think it would be worthwhile talked the bottle Holter monitor or ZIO patch but this could be secondary to your medication. Please continue to hold your pramipexole. Prescription for antibiotic was sent to [facility] in [place]. Wound Care: Keep wound(s) clean and dry. Wash daily with soap and water only. Do not use over the counter products (alcohol or peroxide)on the wounds unless instructed by a physician. If wound condition worsens (increased/expanding redness, developing fluid blisters, or worsening pain), either contact your doctor for an urgent re-assessment , or return to the Emergency Department. Please return for severe headaches, any signs of infection ensure laceration repair, new vision changes, neck or back pain, chest pain or shortness of breath, persistent vomiting, new numbness tingling or weakness, recurrent episodes of falls or loss of consciousness or other new or concerning changes. Prescriptions: No Action ASPIRIN (Aspirin EC) 81 mg PO Q DAY Qty: 0 pramipexole [Mirapex] 0.25 MG tablet 0 PO QID Qty: 480 0RF vitamin B complex [B Complex-Vitamin B12] tablet 1 tab PO DAILY mupirocin 2 % ointment 1 applic topical BID Qty: 22 0RF omeprazole 20 mg capsule,delayed release(DR/EC) 20 mg PO DAILY losartan 25 mg tablet 25 mg PO DAILY Qty: 90 3RF cefpodoxime 200 mg tablet 200 mg PO Q12H 10 Days Qty: 20 0RF Rx Instructions: must administer with a meal/food Referrals: Malena Rosas DO [Primary Care Provider] - Stand Alone Forms: Patient Portal/API
[2024-03-15 07:53] VITALS: BP 140/87; PULSE 73; RESP 16; TEMP 36.9; O2SAT 96; BMI 28.3
--- NOTE | 2024-03-15 07:59 | DI.CT.S_ITS ---
PROCEDURE: CT CERVICAL SPINE WO CON INDICATIONS: fall vs syncope TECHNIQUE: Noncontrast 3 mm thick sections acquired from the skull base to the T4 level. Sagittal and coronal reformats were then constructed. For radiation dose reduction, the following was used: automated exposure control, adjustment of mA and/or kV according to patient size. COMPARISON: [facility], CT, CT CERVICAL SPINE WO CON, 03/13/2024, 11:07. FINDINGS: Image quality: Excellent. Bones: No fractures or dislocations. There is straightening of normal cervical lordosis. Loss of disc height, degenerative endplate changes and bilateral uncovertebral hypertrophic changes are noted throughout cervical spine. Visualized superior ribs are intact. Soft tissues: Prevertebral soft tissues are normal in thickness. No paravertebral hematomas. No apical pneumothoraces. IMPRESSION: 1. No displaced fracture or traumatic subluxation. 2. Degenerative disc disease throughout cervical spine. No significant changes from previous study. Dictated by: Kostas Esposito M.D. on 03/15/2024 at 8:40 Approved by: Kostas Esposito M.D. on 03/15/2024 at 8:45
--- NOTE | 2024-03-15 07:59 | DI.CT.S_ITS ---
PROCEDURE: CT HEAD/BRAIN WO CON INDICATIONS: fall vs syncope TECHNIQUE: Noncontrast 4.5 mm thick angled axial sections acquired from the foramen magnum to the vertex, with coronal and sagittal reformats. For radiation dose reduction, the following was used: automated exposure control, adjustment of mA and/or kV according to patient size. COMPARISON: [facility], CT, CT HEAD/BRAIN WO CON, 03/13/2024, 11:07. FINDINGS: Image quality: Diagnostic. CSF spaces: Basal cisterns are patent. No extra-axial fluid collections. The ventricles are symmetric in size and shape. Brain: No intracranial bleeds or masses. There is cerebral volume loss for age, with resultant ventricular and sulcal prominence. There are periventricular and deep white matter chronic small vessel ischemic changes. There is intracranial internal carotid artery atherosclerosis. Skull and face: Small right frontal scalp hematoma is again seen. Calvarium and visualized facial bones appear intact, without suspicious lesions. Sinuses: Visualized sinuses and mastoids are clear. IMPRESSION: 1. No CT evidence of acute intracranial pathology. 2. Small right frontal scalp hematoma not significantly changed from previous study. No acute skull fracture. Dictated by: Kostas Esposito M.D. on 03/15/2024 at 8:39 Approved by: Kostas Esposito M.D. on 03/15/2024 at 8:40
--- NOTE | 2024-03-15 08:00 | DI.RAD.S_ITS ---
PROCEDURE: XR CHEST 1V INDICATIONS: fall vs syncope TECHNIQUE: One view of the chest was acquired. COMPARISON: [facility], CR, XR CHEST 1V, 03/13/2024, 10:52. FINDINGS: Surgical changes and devices: None. Lungs and pleura: Lungs are clear. No pleural effusions or pneumothorax. Mediastinum: Mediastinal contours appear normal. Heart size is normal. Bones and chest wall: No suspicious bony lesions. Overlying soft tissues appear unremarkable. IMPRESSION: No acute pulmonary process. Dictated by: Carey Bates M.D. on 03/15/2024 at 8:41 Approved by: Carey Bates M.D. on 03/15/2024 at 8:41
[2024-03-15] MEDS: LIDOCAINE/PRILOCAINE 5 GM TOP (08:07)
--- NOTE | 2024-03-15 08:10 | EKG_ITS ---
[address] [address] Test Date: 2024-03-15 Pat Name: Dinora Austin Department: [facility] Room: Gender: Female Dye Maker: SAMMI : 1940 Requested By: Order Number: [id number] Reading MD: Abram Verma Measurements Intervals [place] Rate: 66 P: 53 NC: 148 QRS: 9 QRSD: 64 T: 19 QT: 410 QTc: 429 Interpretive Statements Normal sinus rhythm Low voltage QRS Electronically Signed On 03-15-2024 8:37:13 PDT by Abram Verma
[2024-03-15 08:16] LABS: Add Manual Diff / Slide Review NO; Basophils Absolute Auto 0 /uL (0-100); Basophils Percent Auto 0.5 % (0-2); Eosinophils Absolute Auto 400 /uL (0-450); Eosinophils Percent Auto 4.8 % (2-4); Hematocrit 36.3 % (36-46); Hemoglobin 12.1 g/dL (12.0-16.0); Lymphocytes Absolute Auto 1400 /uL (1100-4500); Lymphocytes Percent Auto 16.8 % (25-40); Mean Corpuscular HGB Conc 33.3 % (30-36); Mean Corpuscular Hemoglobin 30.1 PG (26-34); Mean Corpuscular Volume 90.3 fL (80-100); Monocytes Absolute Auto 1100 /uL (0-900); Monocytes Percent Auto 12.7 % (3-14); Neutrophils Absolute Auto 5400 /uL (1500-7000); Neutrophils Percent Auto 65.2 % (50-75); Platelet Count 264 X10^3/uL (150-400); Red Blood Cell Count 4.02 X10^6/uL (4.0-5.2); Red Cell Distribution Width 13.5 % (11.6-14.8); White Blood Cell Count 8.3 X10^3/uL (4.5-11.0)
[2024-03-15 08:26] VITALS: PULSE 62; O2SAT 96
[2024-03-15 08:28] LABS: Alanine Aminotransferase 22 IU/L (<35); Albumin 3.9 g/dL (3.5-5.0); Albumin Globulin Ratio 1.2 (1.0-2.8); Alkaline Phosphatase 62 U/L (38-126); Aspartate Aminotransferase 40 IU/L (14-36); BUN Creatinine Ratio 36.5 (6-22); Bilirubin Total 0.8 mg/dL (0.2-1.3); Blood Urea Nitrogen 27 mg/dL (7-17); Calcium 8.7 mg/dL (8.4-10.2); Carbon Dioxide 22 mmol/L (22-32); Chloride 108 mmol/L (98-107); Creatine Kinase 291 U/L (30-135); Estimated Glomerular Filt Rate > 60 mL/min (>60); Globulin 3.2 g/dL (1.7-4.1); Glucose 109 mg/dL (80-110); Lipase 147 U/L (23-300); Potassium 4.4 mmol/L (3.4-5.1); Sodium 137 mmol/L (137-145); Total Protein 7.1 g/dL (6.3-8.2)
[2024-03-15 08:29] LABS: HEMOLYSIS 116 (0-50)
[2024-03-15 08:30] VITALS: PULSE 61; O2SAT 92
[2024-03-15 08:31] VITALS: BP 125/59; O2SAT 92
[2024-03-15 08:40] LABS: Troponin I < 0.012 ng/mL (0.01-0.034)
[2024-03-15 08:55] VITALS: BP 117/65; PULSE 67; O2SAT 96
== END 2024-03-15 09:12 | disposition home or self-care (01) ==
PROVIDERS: Emergency Provider Emergency Medicine; Family Provider Family Medicine; PCP Family Medicine
DX: S01.01XA Laceration without foreign body of scalp, initial encounter (principal); W18.30XA Fall on same level, unspecified, initial encounter
CPT/HCPCS: 12002; 36415; 70450; 71045; 72125; 80053; 82550; 83690; 84484; 85025; 93005; 99284

== ENCOUNTER 2024-08-12 18:07 | Emergency (ER) | payer MEDICARE, SELFPAY ==
[2024-08-12 18:15] VITALS: BP 188/91; PULSE 71; RESP 16; TEMP 36.6; O2SAT 96; BMI 28.3
--- NOTE | 2024-08-12 19:11 | PC.NURSE ---
Pt reports taking her blood pressure randomly and noted it to be 170 sys. She states she went to the fire department who checked her bp and also stated her bp was 170. Pt states she took losaratan. Pt states the highest her bp has been reading is 190. Pt denies cp, sob, headache, or extremity or abdominal swelling. Pt states the fire department told her to follow up in the morning; however she states she is unable to get ahold of her PCP due to the holidays.
--- NOTE | 2024-08-12 19:28 | ED.GENADULT ---
HPI - General Adult General Chief complaint: Hypertension Stated complaint: HBP over 190/90s Time Seen by Provider: 08/12/24 19:27 Source: patient, RN notes reviewed and old records reviewed Mode of arrival: Family Vehicle Limitations: no limitations History of Present Illness HPI narrative: 84-year-old female history of hypertension and restless leg presents with complaint of elevated blood pressure for the last 3 days. Patient states she just checked it the other day states she has not really had any symptoms. States was 160s to 170s at she also had it checked with the fire department had 160s there as well. Was going out this evening and got 160s systolic and then had a recheck shortly after that because she was going out for the evening out 180s to 190s. She denies any symptoms no headaches no chest pain no shortness of breath, no vision changes no nausea or vomiting no new swelling in extremities. No other GI or urinary symptoms. No neurologic changes. She denies any medication changes. States she was on losartan 50 mg daily pramipexole for RLS. States no other daily medications. Denies any prior surgeries. States no known drug allergies. No tobacco, occasional wine, no recreational drugs. Dr. Rosas is her primary care physician. Related Data Home Medications Medication Instructions Recorded Confirmed ASPIRIN (Aspirin EC) 81 mg PO Q DAY ##0 02/03/11 05/04/24 vitamin B complex (B 1 tab PO DAILY 01/17/18 05/04/24 Complex-Vitamin B12 tablet) omeprazole 20 mg capsule,delayed 20 mg PO DAILY 11/14/23 05/04/24 release clobetasol 0.05 % scalp solution topical 03/21/24 05/04/24 Previous Rx's Medication Instructions Recorded pramipexole 0.25 mg tablet 0 PO QID #480 tabs 04/06/17 (Mirapex) losartan 25 mg tablet 25 mg PO DAILY #90 tabs 11/14/23 mupirocin 2 % topical ointment 1 applic topical BID #22 grams 12/19/23 losartan 25 mg tablet 25 mg PO DAILY #10 tabs 08/12/24 Allergies Allergy/AdvReac Type Severity Reaction Status Date / Time No Known Drug Allergies Allergy Unverified 05/04/24 13:25 Review of Systems Review of Systems ROS Unobtainable: All systems reviewed & are unremarkable except as noted in HPI and below Patient History Medical History Greater trochanteric bursitis of right hip Graves' disease (10/27/15) Graves' disease (09/20/05) Eczema Hearing loss Cataracts, bilateral Mumps Measles Chickenpox Basal cell carcinoma of scalp Restless legs syndrome (10/27/15) Rosacea (10/27/15) Surgical History Anesthesia Hx of tonsillectomy History of prolapse of bladder Family History Father Cancer Mother Stroke Social History Smoking Status: Never smoker substance use type: does not use Smoking Status: Never smoker Exam Narrative Exam Narrative: GENERAL: Alert and oriented x three, well-appearing elderly female in no acute distress HEENT: Head normocephalic, atraumatic, EOMI, pupils reactive, face symmetric, moist mucous membranes NECK: Supple, full range of motion CARDIOVASCULAR: Regular rate and rhythm without murmurs, rubs or gallops. RESPIRATORY: Breath sounds equal bilaterally, no wheezes rales or rhonchi. ABDOMEN: Soft, nontender. Normoactive bowel sounds all 4 quadrants. No guarding or rebound, rigidity, no mass : No CVA tenderness EXTREMITIES: Normal range of motion, no clubbing or edema. Neurovascularly intact NEUROLOGICAL: Cranial nerves II through XII grossly intact. Moving all extremities SKIN: Warm, dry, no petechiae, no rashes or lesions. Initial Vital Signs Initial Vital Signs: Vital Signs Temperature 97.8 F 08/12/24 18:15 Pulse Rate 71 08/12/24 18:15 Respiratory Rate 16 08/12/24 18:15 Blood Pressure 188/91 H 08/12/24 18:15 Pulse Oximetry 96 08/12/24 18:15 Oxygen Delivery Method Room Air 08/12/24 18:15 Course Vital Signs Vital signs: Vital Signs - 8 hr 08/12/24 18:15 08/12/24 19:48 08/12/24 20:13 Temperature 97.8 F Pulse Rate 71 Respiratory Rate 16 17 Blood Pressure 188/91 H 143/80 H Pulse Oximetry 96 Oxygen Delivery Method Room Air Medical Decision Making MDM Narrative Medical decision making narrative: 84-year-old female presents with complaint of hypertension she was asymptomatic. The pressure was 188/91 on arrival but is 140s systolic on repeat. Discussed with patient we will have her continue to check her blood pressure regularly and if needed can increase her losartan 75 mg from her current 50 mg but encouraged patient to hold off if she was having relatively normal blood pressures. Patient did attempt to follow up with her primary care but because of the holiday season has not been able to establish an appointment. Discharge Plan Departure Patient Disposition: Home Clinical Impression: Hypertension Instructions: DI for High Blood Pressure Activity Restrictions/Additional Instructions: Please follow up with primary care, call tomorrow to set up an appointment. Your repeat blood pressure was 143/80, if you continued to be in the 140s to 150s on average for your blood pressure do not increase your blood pressure medicine. If you are systolic blood pressure is running 160s or higher regularly you can add 1 tablet of 25 mg of losartan to your daily medication for a total of 75 mg of losartan daily. [facility] Please return for headaches, chest pain or shortness of breath, lightheadedness or passing out, vomiting, new swelling of your extremities or other new or concerning changes. Prescriptions: New losartan 25 mg tablet 25 mg PO DAILY Qty: 10 0RF No Action clobetasol 0.05 % solution topical Patient Comments: [NO ORIGINAL SIG] ASPIRIN (Aspirin EC) 81 mg PO Q DAY Qty: 0 pramipexole [Mirapex] 0.25 MG tablet 0 PO QID Qty: 480 0RF vitamin B complex [B Complex-Vitamin B12] tablet 1 tab PO DAILY mupirocin 2 % ointment 1 applic topical BID Qty: 22 0RF omeprazole 20 mg capsule,delayed release(DR/EC) 20 mg PO DAILY losartan 25 mg tablet 25 mg PO DAILY Qty: 90 3RF Referrals: Malena Rosas DO [Primary Care Provider] - Stand Alone Forms: Patient Portal/API/Survey
[2024-08-12 19:48] VITALS: BP 143/80
[2024-08-12 20:13] VITALS: RESP 17
== END 2024-08-12 20:14 | disposition home or self-care (01) ==
PROVIDERS: Emergency Provider Emergency Medicine; Family Provider Family Medicine; PCP Family Medicine
DX: I10 Essential (primary) hypertension (principal)
CPT/HCPCS: 99281

== ENCOUNTER → 2025-02-05 11:21 | Outpatient (CLI) | payer MEDICARE, SELFPAY ==
[2025-02-05 12:23] LABS: Add Manual Diff / Slide Review NO; Basophils Absolute Auto 0 /uL (0-100); Basophils Percent Auto 0.5 % (0-2); Eosinophils Absolute Auto 400 /uL (0-450); Eosinophils Percent Auto 5.7 % (2-4); Hematocrit 39.1 % (36-46); Hemoglobin 13.3 g/dL (12.0-16.0); Lymphocytes Absolute Auto 1700 /uL (1100-4500); Lymphocytes Percent Auto 22.1 % (25-40); Monocytes Absolute Auto 800 /uL (0-900); Monocytes Percent Auto 9.9 % (3-14); Neutrophils Absolute Auto 4800 /uL (1500-7000); Neutrophils Percent Auto 61.8 % (50-75); Platelet Count 280 X10^3/uL (150-400); Red Blood Cell Count 4.16 X10^6/uL (4.0-5.2); Red Cell Distribution Width 12.9 % (11.6-14.8); White Blood Cell Count 7.8 X10^3/uL (4.5-11.0)
[2025-02-05 12:44] LABS: Alanine Aminotransferase 20 IU/L (<35); Albumin 4.1 g/dL (3.5-5.0); Albumin Globulin Ratio 1.4 (1.0-2.8); Alkaline Phosphatase 71 U/L (38-126); Aspartate Aminotransferase 32 IU/L (14-36); BUN Creatinine Ratio 15.2 (6-22); Bilirubin Total 0.6 mg/dL (0.2-1.3); Blood Urea Nitrogen 12 mg/dL (7-17); Carbon Dioxide 25 mmol/L (22-32); Chloride 105 mmol/L (98-107); Cholesterol 207 mg/dL (140-199); Estimated Glomerular Filt Rate > 60 mL/min (>60); Glucose 93 mg/dL (70-99); HDL Cholesterol 50 mg/dL (40-60); HEMOLYSIS < 15 (0-50); LDL Cholesterol Calculated 144 mg/dL (<100); Potassium 4.1 mmol/L (3.4-5.1); Sodium 137 mmol/L (137-145); Total Protein 7.1 g/dL (6.3-8.2); Triglycerides 66 mg/dL (35-150)
[2025-02-05 13:11] LABS: TSH w/ Reflex to FT4 2.88 uIU/mL (0.47-4.68)
== END ==
PROVIDERS: PCP Family Medicine; Referring Provider Family Medicine; Visit Provider Family Medicine
DX: E78.2 Mixed hyperlipidemia (principal); I10 Essential (primary) hypertension; E05.00 Thyrotoxicosis with diffuse goiter without thyrotoxic crisis or storm
CPT/HCPCS: 36415; 80053; 80061; 84443; 85025

== ENCOUNTER → 2025-05-01 11:23 | Outpatient (CLI) | payer MEDICARE, SELFPAY ==
[2025-05-01 12:34] LABS: Cholesterol 220 mg/dL (140-199); HDL Cholesterol 64 mg/dL (40-60); Triglycerides 117 mg/dL (35-150)
== END ==
PROVIDERS: PCP Family Medicine; Referring Provider Family Medicine; Visit Provider Family Medicine
DX: E78.2 Mixed hyperlipidemia (principal)
CPT/HCPCS: 36415; 80061

== ENCOUNTER 2025-08-12 13:52 | Emergency (ER) | payer MEDICARE, SELFPAY ==
--- OUTSIDE RECORDS SUMMARY | 2025-08-12 13:54 | XMS_ITS | Encounter Summary ---
Author Organization [facility] Address [address] [place] [address] Care Team Providers Care Office Manager Name Role Phone Milad Reina DO Primary Care Provider [phone] Reason for Visit * Reason Onset Date Comments Surgery Scheduling 05/21/2025 Encounter Details Date Type Department Care Team (Late st Contact Info) Description 05/21/2025 Telephone [facility] Surgery Center Foot and Ankle [address] [phone] Eneida Tristan, DPM [address] [phone] Surgery Scheduling Social History Tobacco Use Types Packs/Day Years Used Date Smoking Tobacco: Never Smokeless Tobacco: Never Alcohol Use Standard Drinks/Week Comments Not Currently 0 (1 standard drink = 0.6 oz pur e alcohol) Comments Unknown Sex and Gender Information Value Date Recorded Sex Assigned at Not on file Legal Sex Female 7:34 PM PDT Gender Identity Not on file Sexual Orientation Not on file documented as of this encounter Miscellaneous Notes * Telephone Encounter - Humaira Jeffries - 06/27/2025 3:12 PM PST Spoke with Elma and scheduled surgery for 08/14 Pre and post op appointments scheduled. Patient aware they will be called 1-2 days prior to surgery from a pre-op nurse with their check intime. * Telephone Encounter - Gorge Garcia - 06/27/2025 3:05 PM PST Elma/Daughter (ATS on file) returning call, warm transfer to surgery aid * Telephone Encounter - Humaira Jeffries - 06/26/2025 10:54 AM PST Called and left another voicemail. * Telephone Encounter - Mihaela Dominguez - 06/25/2025 12:56 PM PST Dinora's daughter/Elma returning call. Juvenile Probation Officer unavailable. Please call Elma @ [phone] Okay to leave detailed voicemail. * Telephone Encounter - Humaira Jeffries - 06/21/2025 2:28 PM PST Called Meaghan at [phone] the number below was incorrect. Left a voicemail to call me back to get her Mom's surgery scheduled. When the patient calls back please attempt to warm transfer to ext. [phone] between the hours of 6:30 am - 3:30 pm M-F. Thank you * Telephone Encounter - Alina Capps - 06/18/2025 1:14 PM PST Patient daughter Meaghan ATS calling to schedule, wastewater treatment plant attendant not available, Please call back [phone] She says patient is hard of hearing and she will schedule for her. * Telephone Encounter - Humaira Jeffries - 06/12/2025 9:58 AM PDT Called patient at [phone] to attempt to schedule surgery. Voicemail left for patient to call back [phone]. When the patient calls back please attempt to warm transfer to ext. [phone] between the hours of 6:30 am - 3:30 pm M-F. Thank you * Telephone Encounter - Anisa Mahajan MA - 06/06/2025 9:46 AM PDT Received PCP optimization. Sent forms to medical records. Forwarding to Humaira to call patient to schedule surgery and associated appointments. * Telephone Encounter - Anisa Mahajan MA - 06/04/2025 1:13 PM PDT Re-faxed forms, comments state Please confirm if forms have been received & patient is schedule for a pre-op. Please reply with fax or call back. Thank you.. * Telephone Encounter - Anisa Mahajan MA - 05/27/2025 4:30 PM PDT Patient is pursuing correction of left 2nd hammertoe with partial phalangectomy, resection of condyle of distal phalanx, left great toe of the left foot. PCP optimization requested by Dr. Tristan. Surgery to be scheduled pending optimization. Request faxed to Dr. Milad Reina at [facility], fax [phone]. Received fax confirmation. * Telephone Encounter - Anisa Mahajan MA - 05/22/2025 9:01 AM PDT Location:[facility] Time/Length: N/A Type of surgery: CORRECTION OFLEFT 2ND HAMMERTOE WITH PARTIAL PHALANGECTOMY. RESECTION OF CONDYLE OF DISTAL PHALANX, LEFT GREAT TOE. - LEFT FOOT Urgency: Non- Urgent Post op: 1 week. X-Ray: No Provider: Kun Post op: 2 week. X-Ray: No Provider: Kun Surgical prep bag or folder given: No Pacemaker: No Provider/Clinic N/A Clearances: YES PCP: YES provider / clinic Milad Gallardo [facility] Cardiology Clearance: NO provider / clinic name N/A YANIV EKG: YES Pain contract: NO If yes, prescribing provider / clinic and location N/A Chronic pain medications or Suboxone: NO If YES, prescribing provider / clinic and location N/A A1c: YES GLP-1 / Phentermine YES, Condition BP Medication if YES, Provider/ clinic N/A Comments: * Telephone Encounter - Humaira Miguel - 05/21/2025 2:16 PM PDT Please supply surgery details. Thank you. documented in this encounter Plan of Treatment Upcoming Encounters Date Type Department Care Team (Latest Contact Info) Description 08/14/2025 2:00 PM [facility] Hospital Encounter [facility] Operating Room [address] [place] [address] Eneida Tristan DPM [address] [phone] 08/14/2025 2:00 PM PST - 08/14/2025 3:20 PM PST Surgery [facility] Operating Room [address] [place] [phone] Eneida Tristan DPM [address] [phone] LEFT - CORRECTION OFLEFT 2ND HAMMERTOE WITH PARTIAL PHALANGECTOMY [98622 (CPT )] 08/23/2025 2:10 PM PST Office Visit [facility] Surgery Center Foot and Ankle [address] [phone] Eneida Tristan, DPM [address] [phone] 08/30/2025 2:10 PM PST Office Visit [facility] Surgery Center Foot and Ankle [address] [address] Eneida Tristan, DPM [address] [phone] Scheduled Procedures Name Priority Associated Diagnoses Date/Ti me CORRECTION OF HAMMERTOE WITH PARTIAL PHALANGECTOMY Hammertoe of left foot Exostosis of left foot 08/14/2025 2:00 PM PST RESECTION OF CONDYLES OF DISTAL END OF PHALANX OF TOE Hammertoe of left foot Exostosis of left foot 08/14/2025 2:00 PM PST documented as of this encounter Visit Diagnoses Not on filedocumented in this encounter Care Teams Office Manager Relationship Specialty Start Date End Date Milad Reina DO [facility] [address] [place] [address] [id number] [place] [address] PCP - General Family Medicine 05/16/25 documented as of this encounter
--- NOTE | 2025-08-12 14:16 | EKG_ITS ---
[address] [address] Test Date: 2025-08-12 Pat Name: Dinora Austin Department: [facility] Room: Gender: Female Retail Route Supervisor: LALO : 1940 Requested By: Order Number: [id number] Reading MD: Abram Verma Measurements Intervals [place] Rate: 80 P: 31 ME: 152 QRS: -1 QRSD: 66 T: 24 QT: 370 QTc: 426 Interpretive Statements Normal sinus rhythm Electronically Signed On 08-12-2025 18:30:37 PST by Abram Verma
[2025-08-12 14:24] VITALS: BP 189/83; PULSE 87; RESP 18; TEMP 36.2; O2SAT 96; BMI 24.7
--- NOTE | 2025-08-12 14:32 | ED_ITS ---
HPI - General Adult General Chief complaint: Hypertension Stated complaint: High blood pressure , on blood pressure meds Time Seen by Provider: 08/12/25 13:54 Source: patient Mode of arrival: Ambulatory History of Present Illness HPI narrative: Patient is a 85-year-old female history of hypertension presenting today with elevated blood pressure. She reports that she stopped taking her losartan about 6 months ago per doctor's orders. She went in for a preop evaluation she is due to have surgery on her foot they noticed that her blood pressure was quite high. She restarted her losartan about a week ago. She was checking her blood pressure multiple times a day yesterday noted that her systolic was greater than 200 and her diastolic was over 100. She had a slight headache at that time. Today they called PCP who recommended she come to the ED for evaluation. She denies any headache now no chest pain no shortness of breath. She is worried that if she does not get her blood pressure under control she can not have surgery on her foot Related Data Home Medications ?Medication ?Instructions ?Recorded ?Confirmed ASPIRIN (Aspirin EC) 81 mg PO Q DAY ##0 02/03/11 05/10/25 omeprazole 20 mg capsule,delayed 20 mg PO DAILY 05/10/25 release Previous Rx's ?Medication ?Instructions ?Recorded clobetasol 0.05 % scalp solution 1 applic topical BID #50 mL 08/23/24 losartan 25 mg tablet 25 mg PO DAILY #90 tabs 08/16 09/08 nystatin 100,000 unit/gram topical 1 applic topical BI D #60 grams 09/26/24 powder ropinirole 0.5 mg tablet 0.5 mg PO BEDTIME #90 tabs 0 05/10/25 pramipexole 0.25 mg tablet 0.5 mg (2 x 0.25 mg) PO MELVIN LY #90 07/10/25 tabs Allergies Allergy/AdvReac Type Severity Reaction Status Date / Time No Known Drug Allergies Allergy Unverified 08/12/25 14:25 Patient History Medical History Open toe wound Athlete's foot Hammertoe of second toe of left foot Cranial somatic dysfunction Cervical somatic dysfunction Body posture problem Yeast infection Greater trochanteric bursitis of right hip Graves' disease (10/27/15) Graves' disease (09/20/05) Eczema Hearing loss Cataracts, bilateral Mumps Measles Chickenpox Basal cell carcinoma of scalp Restless legs syndrome (10/27/15) Rosacea (10/27/15) Surgical History Anesthesia Hx of tonsillectomy History of prolapse of bladder Family History Father Cancer Mother Stroke Social History substance use type: does not use Smoking Status: Never smoker Exam Initial Vital Signs Initial Vital Signs: Vital Signs Temperature 97.2 F L 08/12/25 14:24 Pulse Rate 87 08/12/25 14:24 Respiratory Rate 18 08/12/25 14:24 Blood Pressure 189/83 H 08/12/25 14:24 Pulse Oximetry 96 08/12/25 14:24 Oxygen Delivery Method Room Air 08/12/25 14:24 GENERAL: Alert very well-appearing 85-year-old female and in no acute distress. HEENT: Head atraumatic,EOMI, pupils reactive, face symmetric, moist mucous membranes CARDIOVASCULAR: Regular rate and rhythm without murmurs, rubs or gallops. RESPIRATORY: Breath sounds equal bilaterally, no wheezes rales or rhonchi. ABDOMEN: Soft, nontender. Normoactive bowel sounds all 4 quadrants. No guarding or rebound. EXTREMITIES: Normal range of motion, no clubbing or edema. Neurovascularly intact NEUROLOGICAL: Alert and oriented x4.Normal gait and speech. Cranial nerves II through XII grossly intact. SKIN: Warm, dry, no laceration, no petechiae, no rashes or lesions. Scores NIH Stroke Scale Level of Conciousness: Alert, keenly responsive Ask month/age: Answers both questions correctly. Open/close eyes, close hand: Performs both tasks correctly Best gaze horizontal: Normal Visual jeffries: No visual loss Facial palsy: Normal symetrical movement Left arm drift: No drift for full 10 sec Right arm drift: No drift for full 10 sec Left leg drift: No drift for full 5 sec Right leg drift: No drift for full 5 sec Limb ataxia: Absent Sensory on face/arms/legs: Normal, no sensory loss Best language: No aphasia, normal Dysarthria: Normal Extinction or inattention: No abnormality Total NIH Stroke scale score: 0 Course Orders Ordered: ED Orders 08/12/25 14:16 Complete Blood Count AUTO DIFF Stat Comprehensive Metabolic Panel Stat Lipase Stat Magnesium Stat NT-proBNP (BNP-Adult 18+) Stat Troponin I Stat EKG-12 Lead Stat Vital Signs Vital signs: Vital Signs - 8 hr 08/12/25 14:24 Temperature 97.2 F L Pulse Rate 87 Respiratory Rate 18 Blood Pressure 189/83 H Pulse Oximetry 96 Oxygen Delivery Method Room Air Medical Decision Making Lab Data 08/12/25 14:30 08/12/25 14:30 Labs: Lab Results 08/12/25 Range/Units 14:30 WBC 9.3 (4.5-11.0) X10^3/uL RBC 4.21 (4.0-5.2) X10^6/uL Hgb 13.2 (12.0-16.0) g/dL Hct 38.8 (36-46) % MCV 92.1 (80-100) fL MCH 31.3 (26-34) PG MCHC 33.9 (30-36) % RDW 12.9 (11.6-14.8) % Plt Count 292 (150-400) X10^3/uL Neut % (Auto) 65.6 (50-75) % Lymph % (Auto) 17.7 L (25-40) % Morris % (Auto) 10.8 (3-14) % Eos % (Auto) 5.2 H (2-4) % Baso % (Auto) 0.7 (0-2) % Neut # (Auto) 6100 (0470-6683) /uL Lymph # (Auto) 1600 (3154-7568) /uL Morris # (Auto) 1000 H (0-900) /uL Eos # (Auto) 500 H (0-450) /uL Baso # (Auto) 100 (0-100) /uL Sodium 139 (137-145) mmol/L Potassium 3.5 (3.4-5.1) mmol/L Chloride 105 (98-107) mmol/L Carbon Dioxide 29 (22-32) mmol/L BUN 16 (7-17) mg/dL Creatinine 0.66 (0.52-1.04) mg/dL Estimated GFR > 60 (>60) mL/min BUN/Creatinine Ratio 24.2 H (6-22) Glucose 93 (70-99) mg/dL Calcium 9.1 (8.4-10.2) mg/dL Magnesium 2.0 (1.6-2.3) mg/dL Total Bilirubin 0.5 (0.2-1.3) mg/dL AST 33 (14-36) IU/L ALT 19 (<35) IU/L Alkaline Phosphatase 61 (38-126) U/L Troponin I < 0.012 (0.01-0.034) ng/mL NT-Pro-B Natriuret Pep 574 H (<450) pg/mL Total Protein 7.2 (6.3-8.2) g/dL Albumin 4.1 (3.5-5.0) g/dL Globulin 3.1 (1.7-4.1) g/dL Albumin/Globulin Ratio 1.3 (1.0-2.8) Lipase 130 (23-300) U/L ECG Data Attestation: I personally reviewed and interpreted this ECG as follows: Interpretation: Sinus rhythm rate 80 OK interval 152 QRS [address] changes no T-wave inversions MDM Narrative Medical decision making narrative: Patient is an 85-year-old female presenting today with elevated blood pressure. She is relatively asymptomatic at a mild headache yesterday with systolic greater than 200. She has no neurologic deficits. No concern for intracranial hemorrhage. Blood work has been reviewed CBC within normal limit CMP within normal Troponin negative BNP 574 EKGs reviewed normal sinus without ischemia Patient has no evidence of end-organ damage blood pressure is 189/83 in triage has come some. But this time daughter would really like more aggressive blood pressure control so that she can have surgery as scheduled. I have explained that this is a primary care provider we will need to follow and monitor. Patient actually got an appointment with her primary care provider while waiting in the emergency department is in 30 minutes. This time follow-up for medication adjustment. Discharge Plan Departure Patient Disposition: Home Clinical Impression: Hypertension Instructions: DI for High Blood Pressure Activity Restrictions/Additional Instructions: *You have been diagnosed with hypertension *What to do: At this time I will add 1 blood pressure medication. However you must follow up with your primary care provider Check your blood pressure 1 or 2 times daily approximately same time every day *Continue to take medications as directed *Follow up with your primary care provider in 2-3 days or call [phone] *Return to ER if you should have chest pain shortness of breath headache nausea vomiting [or] any new, worsening or concerning symptoms Prescriptions: No Action ASPIRIN (Aspirin EC) 81 mg PO Q DAY Qty: 0 pramipexole 0.25 mg tablet 0.5 mg PO DAILY Qty: 90 2RF clobetasol 0.05 % solution 1 applic topical BID Qty: 50 3RF Rx Instructions: Mix with Cerave Cream - apply to affected areas twice daily for 4 weeks, then 2 weeks off. Repeat until rash clears losartan 25 mg tablet 25 mg PO DAILY Qty: 90 0RF Rx Instructions: Take with 50mg tab for total daily dose of 75mg ropinirole 0.5 mg tablet 0.5 mg PO BEDTIME Qty: 90 0RF Rx Instructions: administer 1-3 hours before bedtime omeprazole 20 mg capsule,delayed release(DR/EC) 20 mg PO DAILY nystatin 100,000 unit/gram powder 1 applic topical BID Qty: 60 1RF Referrals: Milad Reina DO [Primary Care Provider, Family Practice] Stand Alone Forms: Patient Portal/API
[2025-08-12 14:44] LABS: Add Manual Diff / Slide Review NO; Hematocrit 38.8 % (36-46); Hemoglobin 13.2 g/dL (12.0-16.0); Lymphocytes Absolute Auto 1600 /uL (1100-4500); Mean Corpuscular HGB Conc 33.9 % (30-36); Mean Corpuscular Hemoglobin 31.3 PG (26-34); Mean Corpuscular Volume 92.1 fL (80-100); Platelet Count 292 X10^3/uL (150-400)
[2025-08-12 14:57] LABS: Alanine Aminotransferase 19 IU/L (<35); Albumin 4.1 g/dL (3.5-5.0); Albumin Globulin Ratio 1.3 (1.0-2.8); Alkaline Phosphatase 61 U/L (38-126); Blood Urea Nitrogen 16 mg/dL (7-17); Calcium 9.1 mg/dL (8.4-10.2); Carbon Dioxide 29 mmol/L (22-32); Chloride 105 mmol/L (98-107); Estimated Glomerular Filt Rate > 60 mL/min (>60); Globulin 3.1 g/dL (1.7-4.1); Glucose 93 mg/dL (70-99); HEMOLYSIS 31 (0-50); Lipase 130 U/L (23-300); Magnesium 2.0 mg/dL (1.6-2.3); Potassium 3.5 mmol/L (3.4-5.1); Sodium 139 mmol/L (137-145); Total Protein 7.2 g/dL (6.3-8.2)
[2025-08-12 15:08] LABS: NT-proBNP (BNP-Adult 18+) 574 pg/mL (<450); Troponin I < 0.012 ng/mL (0.01-0.034)
[2025-08-12 15:40] VITALS: BP 175/81; PULSE 76; RESP 16; O2SAT 96
--- NOTE | 2025-08-12 15:43 | PC.NURSE ---
first contact with patient is discharge. Exam deferred to Dr. Craig.
== END 2025-08-12 15:45 | disposition home or self-care (01) ==
PROVIDERS: Emergency Provider Emergency Medicine; PCP Family Medicine
DX: I10 Essential (primary) hypertension (principal)
CPT/HCPCS: 36415; 80053; 83690; 83735; 83880; 84484; 85025; 93005; 99283; 99284